=== PATIENT | male | born 1950 | race Caucasian/White ===

== ENCOUNTER 2016-04-05 10:00 | Inpatient (IN) | payer BC, OTHER ==
--- NOTE | 2016-04-05 16:36 | US ---
EXAMINATION: Ultrasound guided right thoracentesis. HISTORY: Right pleural effusion. Technique/findings: The procedure, benefits and risks were discussed with the patient. Following juana fernandez informed consent was obtained from the patient, under ultrasound guidance and utilizing 1% li docaine as local anesthesia the right pleural effusion was accessed using a 5 Malay one-step needle . Following access the catheter was placed into the effusion, 1800 cc of pleural effusion was drain ed. US images demonstrate a small residual pleural effusion. The patient tolerated the procedure we ll. IMPRESSION: Successful ultrasound guided right thoracentesis. Fluid was dark red.
[2016-04-05] MEDS ORDERED: Bisacodyl 5 MG Tab PO PRN (17:55)
[2016-04-05] MEDS ORDERED: Ondansetron 4 MG Tab.DIS PO PRN (17:55)
--- NOTE | 2016-04-05 18:04 | PCM.HP ---
H&P History of Present Illness - General Date of Service: 04/05/16 Admit Problem/Dx: Admission Diagnosis/Problem Admission Diagnosis/Problem Hypoxia Source of Information: Patient, Family, Old records, Provider, RN - History of Present Illness Initial Comments - Free Text/Narative: he was discharged from acute care status yesterday. He saw radiation oncology today. After a therapeutic thoracentesis today I received a call from Dr. Beaulieu who requested monitoring in the hospital for generalized weakness. - Related Data Allergies/Adverse Reactions: Allergies Allergy/AdvReac Type Severity Reaction Status Date / Time No Known Allergies Allergy Verified 03/29/16 15:06 Home Medications: Home Meds Pramipexole Di-HCl [Pramipexole Dihydrochloride] 3 tab PO BEDTIME 02/24/16 [ History] Albuterol Sulfate [Proair Hfa] 2 puff INH Q4H PRN 03/29/16 [History] Aspirin [Lo-Dose Aspirin EC] 1 tab PO DAILY 03/29/16 [History] Umeclidinium Brm/Vilanterol Tr [Anoro Ellipta 62.5-25 Mcg INH] 1 puff INH DAILY 03/29/16 [History] Zolpidem [Ambien] 10 mg PO BEDTIME 03/29/16 [History] Amoxicillin/Clavulanate K [Augmentin 875 MG/125 MG] 1 tab PO Q12HR #10 tablet [Rx] metroNIDAZOLE 500 mg PO Q6H #20 tablet 04/04/16 [Rx] oxyCODONE 5 mg PO Q4HR PRN #40 tablet 04/04/16 [Rx] Past Medical History Other HEENT History: glasses, has upper and lower dentures Cardiovascular History: Reports: None Respiratory History: Reports: None Gastrointestinal History: Reports: Chronic constipation Genitourinary History: Reports: None Musculoskeletal History: Reports: Other (see below) Other Musculoskeletal History: restless leg syndrome Neurological History: Reports: None Psychiatric History: Reports: None Endocrine/Metabolic History: Reports: Obesity/BMI 30+ Hematologic History: Reports: None Immunologic History: Reports: None Oncologic (Cancer) History: Reports: Lung Dermatologic History: Reports: None - Past Surgical History Head Surgeries/Procedures: Reports: None HEENT Surgical History: Reports: None Cardiovascular Surgical History: Reports: None Respiratory Surgical History: Reports: None GI Surgical History: Reports: None Male Surgical History: Reports: None Endocrine Surgical History: Reports: None Neurological Surgical History: Reports: None Musculoskeletal Surgical History: Reports: None Oncologic Surgical History: Reports: Other (see below) Other Oncologic Surgeries/Procedures: lung biopsy Social & Family History - Family History Family Medical History: Noncontributory HEENT: Reports: None Cardiac: Reports: None Respiratory: Reports: None GI: Reports: None : Reports: None OBGYN: Reports: None Musculoskeletal: Reports: None Neurological: Reports: None Psychiatric: Reports: None Endocrine/Metabolic: Reports: None Hematologic: Reports: None Immunologic: Reports: None Dermatologic: Reports: None Oncologic: Reports: None - Tobacco Use Smoking Status *Q: Former Smoker Years of Tobacco use: 40 Packs/Tins Daily: 2 Used Tobacco, but Quit: Yes Month Tobacco Last Used: 2016 Second Hand Smoke Exposure: No - Caffeine Use Caffeine Use: Reports: Coffee - Recreational Drug Use Recreational Drug Use: No Drug Use in Last 12 Months: No H&P Review of Systems - Review of Systems: Review Of Systems: See Below General: Reports: malaise, weakness, fatigue. Denies: fever, chills Pulmonary: Reports: shortness of breath (chronic) Cardiovascular: Denies: chest pain, palpitations Gastrointestinal: Reports: Diarrhea. Denies: Abdominal pain, Black stool, Bloody stool Exam - Exam Exam: See Below - Vital Signs Vital Signs: Last Vital Signs Temp 96.2 F 04/05/16 17:07 Pulse 96 04/05/16 17:07 Resp 22 H 04/05/16 17:07 BP 108/65 04/05/16 17:07 Pulse Ox 95 04/05/16 17:07 Weight: 87 kg - Exam General: alert, oriented, cooperative HEENT: EOMI Neck: supple Lungs: Decreased breath sounds (on the right). No: Wheezing Cardiovascular: regular rate, regular rhythm Abdomen: soft. No: tenderness Rectal (Males) Exam: Deferred Back Exam: other Neurological: cranial nerves intact, normal speech Neuro Extensive - Motor, Sensory, Reflexes: No: facial palsy (L), facial palsy ( R), hemiplagia (L), hemiplagia (R) *Q Meaningful Use (ADM) - VTE *Q VTE Criteria *Q: - Stroke *Q Stroke Criteria *Q: - AMI *Q AMI Criteria *Q: - Problem List (1) Hypoxia SNOMED Code(s): 493122277, 946050783 ICD Code: R09.02 - HYPOXEMIA Status: Acute Current Visit: No (2) Lung cancer SNOMED Code(s): 808689035 ICD Code: C34.90 - MALIGNANT NEOPLASM OF UNSP PART OF UNSP BRONCHUS OR LUNG Status: Acute Current Visit: No Qualifiers: Laterality: right Lung location: unspecified part of lung Qualified Code( s): C34.91 - Malignant neoplasm of unspecified part of right bronchus or lung (3) Malignant pleural effusion SNOMED Code(s): 08653940 ICD Code: J91.0 - MALIGNANT PLEURAL EFFUSION Status: Acute Current Visit : No Problem List Initiated/Reviewed/Updated: Yes Orders Last 24hrs: Active Orders 24 hr Category Date Time Status Admission Status [Patient Status] [ADT] Routine ADT 04/05/16 16:47 Active Oxygen Therapy [RC] PRN Care 04/05/16 17:55 Active Supplemental O2 [Oxygen Therapy] [RC] ASDIRECTED Care 04/05/16 16:52 Active VTE/DVT Education [RC] PER UNIT ROUTINE Care 04/05/16 17:55 Active Vital Signs [RC] Q4H Care 04/05/16 17:55 Active Regular Diet [DIET] Diet 04/05/16 Dinner Active Chest 1V Frontal [CR] Routine Exams 04/05/16 17:55 Ordered CBC WITH AUTO DIFF [HEME] AM Lab 04/06/16 05:11 Ordered COMPREHENSIVE METABOLIC PN,CMP [CHEM] AM Lab 04/06/16 05:11 Ordered MAGNESIUM [CHEM] AM Lab 04/06/16 05:11 Ordered Amoxicillin/Clavulanate K [Augmentin 875 MG/125 MG] Med 04/05/16 21:00 Ordered 1 tab PO Q12HR Aspirin [Halfprin] Med 04/06/16 09:00 Ordered 1 tab PO DAILY Bisacodyl [Dulcolax] Med 04/05/16 17:55 Ordered 5 mg PO DAILY PRN Megestrol [Megace] Med 04/06/16 09:00 Ordered 40 mg PO DAILY Ondansetron [Zofran ODT] Med 04/05/16 17:55 Ordered 4 mg PO Q4H PRN Pramipexole Med 04/05/16 21:00 Ordered 3 tab PO BEDTIME Sodium Chloride 0.9% @ 125 MLS/HR (1000ml) Med 04/05/16 18:00 Ordered Sodium Chloride 0.9% [Normal Saline] 1,000 ml IV ASDIRECTED Umeclidinium Brm/Vilanterol Tr [Anoro Ellipta 62.5-25 Med 04/06/16 09:00 Ordered Mcg INH] 1 puff INH DAILY Zolpidem Med 04/05/16 21:00 Ordered 10 mg PO BEDTIME metroNIDAZOLE Med 04/05/16 18:00 Ordered 500 mg PO Q6H oxyCODONE Med 04/05/16 17:49 Ordered 5 mg PO Q4HR PRN Resuscitation Status Routine Resus Stat 04/05/16 17:55 Ordered Medication Orders Amoxicillin/Clavulanate Potassium (Augmentin 875 Mg/125 Mg) 1 tab PO Q12HR [facility] Aspirin (Halfprin) mg PO DAILY [facility] Bisacodyl (Dulcolax) 5 mg PO DAILY PRN PRN Reason: Constipation Sodium Chloride (Normal Saline) 1,000 mls @ 125 mls/hr IV ASDIRECTED [facility] Megestrol Acetate (Megace) 40 mg PO DAILY [facility] Metronidazole (Metronidazole) 500 mg PO Q6H [facility] Non-Formulary Medication (Pramipexole) 3 tab PO BEDTIME [facility] Non-Formulary Medication (Umeclidinium Brm/Vilanterol Tr [Anoro Ellipta 62.5-25 Mcg Inh]) 1 puff INH DAILY [facility] Non-Formulary Medication (Zolpidem) 10 mg PO BEDTIME [facility] Ondansetron HCl (Zofran Odt) 4 mg PO Q4H PRN PRN Reason: nausea, able to take PO Oxycodone HCl (Oxycodone) 5 mg PO Q4HR PRN PRN Reason: Pain Assessment/Plan Comment:: observation oncology planned this week may need placement as his is unable to care for him currently CXR in am may consider PT consult in am IVF megace for poor appetite. lab in am. Riley Chinchilla MD
[2016-04-05] MEDS: metroNIDAZOLE 250 MG Tab PO SCH (18:45)
[2016-04-05] MEDS: Sodium Chloride 0.9% 1,000 ML IV SCH (18:45)
[2016-04-05] MEDS: Pramipexole 0.25 MG Tab PO SCH (20:11)
[2016-04-05] MEDS: Amoxicillin/Clavulanate K 875-125 MG Tab PO SCH (20:12)
[2016-04-05] MEDS: oxyCODONE 5 MG Tab PO PRN (20:15)
[2016-04-06] MEDS: metroNIDAZOLE 250 MG Tab PO SCH ×4 (00:42→18:15)
[2016-04-06] MEDS: Sodium Chloride 0.9% 1,000 ML IV SCH ×3 (02:54→21:21)
[2016-04-06 05:38] LABS: CHLORIDE,CL 107 mmol/L (98-110); SODIUM,NA 140 mmol/L (136-146)
[2016-04-06] MEDS: Amoxicillin/Clavulanate K 875-125 MG Tab PO SCH ×2 (08:32→21:05)
[2016-04-06] MEDS: Aspirin 81 MG Tab.EC PO SCH (08:32)
[2016-04-06] MEDS ORDERED: Megestrol Susp 40 MG/ML 10 ML UD Cup PO SCH (09:00)
[2016-04-06] MEDS ORDERED: Megestrol 40 MG Tab PO SCH (09:00)
[2016-04-06] MEDS: UMECLIDINIUM BRM INH SCH (09:16)
[2016-04-06] MEDS: VILANTEROL TR INH SCH (09:16)
[2016-04-06] MEDS ORDERED: Magnesium Sulfate/Water 2 GM in Premix Bag 1 BAG IV ONE (09:30)
--- NOTE | 2016-04-06 09:30 | NM ---
EXAMINATION: Whole-body PET CT scan from skullbase to proximal thighs. HISTORY: Lung cancer. PROCEDURE: Patient's fasting blood glucose was 125 mg/dL. 12.2 mCi of FDG was administered. Scannin g was performed one hour following injection. Comparison CT chest dated 03/29/2016 FINDINGS: NECK/CHEST: There is a large right pleural effusion. The right lung is predominantly collapsed howev er there is diffuse uptake throughout the right lung most prominent anteriorly. The maximum SUV is 1 0.4. There is uptake within the mediastinum and left hilum. Patchy uptake is also noted within the l eft low with several subpleural groundglass nodules identified. No abnormal uptake is noted within t he cervical chains. ABDOMEN/PELVIS: There is mild uptake within a small left adrenal nodule. No focal hepatic uptake. There is mild acti vity within a few small retroperitoneal lymph nodes. Normal excretion is noted within the kidneys an d bladder. No focal uptake within the small bowel or colon. OSSEOUS STRUCTURES: Diffuse skeletal metastases are noted throughout the cervical, thoracic, and lum bar spine. Numerous areas of uptake are noted within the sternum, ribs, sacrum and pelvis. Uptake is also noted within the proximal left humerus and within both femurs.. IMPRESSION: 1. Large ill-defined right pulmonary mass, difficult to measure due to adjacent atelectasis from the large right pleural effusion. Overall this area demonstrates avid FDG uptake. 2. Bilateral hilar, mediastinal, and patchy left pulmonary uptake consistent with malignant involvem ent. 3. Extensive diffuse osseous metastatic disease. 4. Small left adrenal nodule and several small retroperitoneal lymph nodes also demonstrating increa sed FDG uptake in stenosis with metastatic disease.
--- NOTE | 2016-04-06 11:17 | PCM.PN ---
<Jacklyn Sawyer - Last Filed: 04/06/16 11:07> - General Info Date of Service: 04/06/16 - Review of Systems General: Reports: weakness HEENT: Reports: no symptoms Pulmonary: Reports: no symptoms Cardiovascular: Reports: no symptoms Gastrointestinal: Reports: No symptoms Genitourinary: Reports: no symptoms Musculoskeletal: Reports: no symptoms Skin: Reports: no symptoms Neurological: Reports: no symptoms Psychiatric: Reports: no symptoms - Patient Data Vitals - most recent: Last Vital Signs Temp 98.1 F 04/06/16 08:00 Pulse 90 04/06/16 08:00 Resp 18 04/06/16 08:00 BP 102/55 L 04/06/16 08:00 Pulse Ox 96 04/06/16 10:30 Weight - most recent: 196 lb 8 oz I&O - last 24 hours: Intake & Output 04/05/16 04/06/16 04/06/16 22:59 06:59 14:59 Intake Total 2041 Balance 2041 Lab Results last 24 hrs: Laboratory Results - last 24 hr 04/06/16 04/06/16 Range/Units 04:45 04:45 WBC 11.70 H (4.0-11.0) K/uL RBC 3.93 L (4.50-5.90) M/uL Hgb 10.9 L (13.0-17.0) g/dL Hct 32.5 L (38.0-50.0) % MCV 82.7 (80.0-98.0) fL MCH 27.7 (27.0-32.0) pg MCHC 33.5 (31.0-37.0) g/dL RDW Std Deviation 44.0 (28.0-62.0) fl RDW Coeff of Vivienne 15 (11.0-15.0) % Plt Count 304 (150-400) K/uL MPV 9.60 (7.40-12.00) fL Add Manual Diff YES Neutrophils % (Manual) 78 (48.0-80.0) % Band Neutrophils % 2 % Lymphocytes % (Manual) 3 L (16.0-40.0) % Monocytes % (Manual) 11 (0.0-15.0) % Eosinophils % (Manual) 3 (0.0-7.0) % Basophils % (Manual) 3 H (0.0-1.5) % Nucleated RBC % 0.0 /100WBC Absolute Seg Neuts 9.1 Band Neutrophils # 0.2 Lymphocytes # (Manual) 0.4 Monocytes # (Manual) 1.3 Eosinophils # (Manual) 0.4 Basophils # (Manual) 0 Nucleated RBCs # 0 K/uL Sodium 140 (136-146) mmol/L Potassium 4.2 (3.5-5.1) mmol/L Chloride 107 (98-110) mmol/L Carbon Dioxide 23 (21-31) mmol/L BUN 12 (6.0-23.0) mg/dL Creatinine 0.7 (0.6-1.5) mg/dL Est Cr Clr Drug Dosing 110.35 mL/min Estimated GFR (MDRD) > 60.0 ml/min Glucose 96 (60-110) mg/dL Calcium 8.4 L (8.8-10.8) mg/dL Magnesium 1.2 L (1.5-2.3) mEq/L Total Bilirubin 0.7 (0.1-1.5) mg/dL AST 57 H (5-40) IU/L ALT 50 (8-54) IU/L Alkaline Phosphatase 102 (40-150) Total Protein 4.9 L (6.0-8.0) g/dL Albumin 2.6 L (3.4-4.8) g/dL Globulin 2.3 (2.0-3.5) g/dL Albumin/Globulin Ratio 1.1 L (1.3-2.8) Med Orders - Current: Current Medications Amoxicillin/Clavulanate Potassium (Augmentin 875 Mg/125 Mg) 1 tab PO Q12HR [facility] Last Admin: 04/06/16 08:32 Dose: 1 tab Aspirin (Halfprin) 81 mg PO DAILY [facility] Last Admin: 04/06/16 08:32 Dose: 81 mg Bisacodyl (Dulcolax) 5 mg PO DAILY PRN PRN Reason: Constipation Sodium Chloride (Normal Saline) 1,000 mls @ 125 mls/hr IV ASDIRECTED [facility] Last Admin: 04/06/16 02:54 Dose: 125 mls/hr Magnesium Sulfate 2 gm/ Premix 50 mls @ 25 mls/hr IV ONETIME ONE Stop: 04/06/16 11:29 Last Admin: 04/06/16 10:09 Dose: 25 mls/hr Megestrol Acetate (Megace 40 Mg/Ml Susp) 400 mg PO DAILY [facility] Last Admin: 04/06/16 08:32 Dose: 400 mg Metronidazole (Metronidazole) 500 mg PO Q6H [facility] Last Admin: 04/06/16 05:16 Dose: 500 mg Ondansetron HCl (Zofran Odt) 4 mg PO Q4H PRN PRN Reason: nausea, able to take PO Oxycodone HCl (Oxycodone) 5 mg PO Q4HR PRN PRN Reason: Pain Last Admin: 04/05/16 20:15 Dose: 5 mg Umeclidinium Brm/Vilanterol Tr [Anoro Ellipta] 62.5-25mcg 1 each INH DAILY [facility] Last Admin: 04/06/16 09:16 Dose: 1 each Pramipexole Dihydrochloride (Mirapex) 0.375 mg PO BEDTIME [facility] Last Admin: 04/05/16 20:11 Dose: 0.375 mg Zaleplon (Sonata) 10 mg PO BEDTIME [facility] Last Admin: 04/05/16 23:48 Dose: Not Given - Exam General: alert, oriented HEENT: Pupils equal, EOMI Neck: supple Lungs: Decreased breath sounds Cardiovascular: regular rate, regular rhythm Abdomen: bowel sounds present Back Exam: normal inspection Extremities: no edema - Problem List Review Problem List Initiated/Reviewed/Updated: Yes - My Orders Last 24 Hours: My Active Orders 04/06/16 09:30 Magnesium Sulfate/Water [Magnesium Sulfate 2 GM in Water 50 ML] 2 gm Premix Bag 1 bag IV ONETIME 04/06/16 10:45 PICC Line Insertion [CR] Routine - Plan Plan:: CXR today still has large right pleural effusion despite thrococentensis of 1800 ml yesterday PICC line will be placed today for chemo. <Mauro Fernandez - Last Filed: 04/06/16 15:55> - Patient Data Vitals - most recent: Last Vital Signs Temp 98.8 F 04/06/16 11:20 Pulse 94 04/06/16 11:20 Resp 20 04/06/16 11:20 BP 122/68 04/06/16 11:20 Pulse Ox 94 L 04/06/16 11:20 I&O - last 24 hours: Intake & Output 04/06/16 04/06/16 04/06/16 06:59 14:59 22:59 Intake Total 2041 Balance 2041 Lab Results last 24 hrs: Laboratory Results - last 24 hr 04/06/16 04/06/16 Range/Units 04:45 04:45 WBC 11.70 H (4.0-11.0) K/uL RBC 3.93 L (4.50-5.90) M/uL Hgb 10.9 L (13.0-17.0) g/dL Hct 32.5 L (38.0-50.0) % MCV 82.7 (80.0-98.0) fL MCH 27.7 (27.0-32.0) pg MCHC 33.5 (31.0-37.0) g/dL RDW Std Deviation 44.0 (28.0-62.0) fl RDW Coeff of Vivienne 15 (11.0-15.0) % Plt Count 304 (150-400) K/uL MPV 9.60 (7.40-12.00) fL Add Manual Diff YES Neutrophils % (Manual) 78 (48.0-80.0) % Band Neutrophils % 2 % Lymphocytes % (Manual) 3 L (16.0-40.0) % Monocytes % (Manual) 11 (0.0-15.0) % Eosinophils % (Manual) 3 (0.0-7.0) % Basophils % (Manual) 3 H (0.0-1.5) % Nucleated RBC % 0.0 /100WBC Absolute Seg Neuts 9.1 Band Neutrophils # 0.2 Lymphocytes # (Manual) 0.4 Monocytes # (Manual) 1.3 Eosinophils # (Manual) 0.4 Basophils # (Manual) 0 Nucleated RBCs # 0 K/uL Sodium 140 (136-146) mmol/L Potassium 4.2 (3.5-5.1) mmol/L Chloride 107 (98-110) mmol/L Carbon Dioxide 23 (21-31) mmol/L BUN 12 (6.0-23.0) mg/dL Creatinine 0.7 (0.6-1.5) mg/dL Est Cr Clr Drug Dosing 110.35 mL/min Estimated GFR (MDRD) > 60.0 ml/min Glucose 96 (60-110) mg/dL Calcium 8.4 L (8.8-10.8) mg/dL Magnesium 1.2 L (1.5-2.3) mEq/L Total Bilirubin 0.7 (0.1-1.5) mg/dL AST 57 H (5-40) IU/L ALT 50 (8-54) IU/L Alkaline Phosphatase 102 (40-150) Total Protein 4.9 L (6.0-8.0) g/dL Albumin 2.6 L (3.4-4.8) g/dL Globulin 2.3 (2.0-3.5) g/dL Albumin/Globulin Ratio 1.1 L (1.3-2.8) Med Orders - Current: Current Medications Albuterol (Proventil Hfa) gm INH Q4H PRN PRN Reason: Shortness of Breath Amoxicillin/Clavulanate Potassium (Augmentin 875 Mg/125 Mg) 1 tab PO Q12HR [facility] Last Admin: 04/06/16 08:32 Dose: 1 tab Aspirin (Halfprin) 81 mg PO DAILY [facility] Last Admin: 04/06/16 08:32 Dose: 81 mg Bisacodyl (Dulcolax) 5 mg PO DAILY PRN PRN Reason: Constipation Sodium Chloride (Normal Saline) 1,000 mls @ 125 mls/hr IV ASDIRECTED [facility] Last Admin: 04/06/16 13:22 Dose: 125 mls/hr Metronidazole (Metronidazole) 500 mg PO Q6H [facility] Last Admin: 04/06/16 11:39 Dose: 500 mg Ondansetron HCl (Zofran Odt) 4 mg PO Q4H PRN PRN Reason: nausea, able to take PO Oxycodone HCl (Oxycodone) 5 mg PO Q4HR PRN PRN Reason: Pain Last Admin: 04/05/16 20:15 Dose: 5 mg Umeclidinium Brm/Vilanterol Tr [Anoro Ellipta] 62.5-25mcg 1 each INH DAILY [facility] Last Admin: 04/06/16 09:16 Dose: 1 each Pramipexole Dihydrochloride (Mirapex) 0.375 mg PO BEDTIME [facility] Last Admin: 04/05/16 20:11 Dose: 0.375 mg Zaleplon (Sonata) 10 mg PO BEDTIME [facility] Last Admin: 04/05/16 23:48 Dose: Not Given Discontinued Medications Magnesium Sulfate 2 gm/ Premix 50 mls @ 25 mls/hr IV ONETIME ONE Stop: 04/06/16 11:29 Last Admin: 04/06/16 10:09 Dose: 25 mls/hr Megestrol Acetate (Megace 40 Mg/Ml Susp) 400 mg PO DAILY [facility] Last Admin: 04/06/16 08:32 Dose: 400 mg - My Orders Last 24 Hours: My Active Orders 04/06/16 15:46 PT Evaluation and Treatment [CONS] Routine Albuterol [Proventil HFA] DOSE gm INH Q4H PRN 04/06/16 15:47 Thoracentesis W/ US Guide [US] Routine - Plan Plan:: Generalized weakness - PT < oT therap[y , patient needs placement Metastatic lung cancer with recurrent pleural effusions - for Ir tomorrow for drainage Pick line today Pneumonia- procalcitonin level , continue augmentin and metronidazole for a total of 7-10 days
[2016-04-06] MEDS ORDERED: Albuterol 8 GM Inhaler INH PRN (15:46)
--- NOTE | 2016-04-06 16:00 | CR ---
EXAM DATE: 04/05/16 PATIENT'S AGE: 66 Patient: ADONAY DÍAZ Facility: [place], [place] Site . Site : [id number] Study: XRay Chest [id number]/[id number] 10:21:44 PM Ordering Physician: Renée Zamudio Final Report: INDICATION: Status post thoracentesis 6 hours prior. Lung cancer. Shortness of breath TECHNIQUE: Chest 1 view. 10:15 p.m. COMPARISON: 04/04/2016 FINDINGS: Cardiovascular and mediastinum: Heart size and vasculature are normal in caliber and appearance. Mediastinum is within normal limits. Lungs and pleural space: Stable large right pleural effusion. Underlying infiltrate cannot be excluded. No pneumothorax. Bones and soft tissues: No significant findings. IMPRESSION: Stable large right pleural effusion. Underlying infiltrate cannot be excluded. Dictated by J Carlos Roque MD @ 04/05/2016 10:25:26 PM Dictated by: J Carlos Roque MD @ 04/05/2016 22:25:33 (Electronic Signature) Report Signed by Proxy and Original Signed Document filed in the Medical Record. [facility], [place]
[2016-04-06] MEDS ORDERED: Iopamidol 612 MG/ML 75 ML Bottle IVPUSH STA (16:33)
[2016-04-06] MEDS: Enoxaparin 40 MG/0.4 ML Syringe SUBCUT SCH (16:53)
[2016-04-06] MEDS: Pramipexole 0.25 MG Tab PO SCH (21:05)
[2016-04-07] MEDS: metroNIDAZOLE 250 MG Tab PO SCH ×4 (00:11→18:06)
[2016-04-07 05:13] LABS: CHLORIDE,CL 106 mmol/L (98-110); SODIUM,NA 139 mmol/L (136-146)
[2016-04-07] MEDS: oxyCODONE 5 MG Tab PO PRN (05:22)
[2016-04-07] MEDS: Sodium Chloride 0.9% 1,000 ML IV SCH ×2 (05:27→16:48)
[2016-04-07] MEDS: UMECLIDINIUM BRM INH SCH (09:00)
[2016-04-07] MEDS: VILANTEROL TR INH SCH (09:00)
[2016-04-07] MEDS: Amoxicillin/Clavulanate K 875-125 MG Tab PO SCH (09:51)
[2016-04-07] MEDS: Aspirin 81 MG Tab.EC PO SCH (09:51)
[2016-04-07] MEDS ORDERED: Magnesium Sulfate/Water 2 GM in Premix Bag 1 BAG IV ONE (10:11)
[2016-04-07] MEDS: Enoxaparin 40 MG/0.4 ML Syringe SUBCUT SCH (15:30)
--- NOTE | 2016-04-07 15:53 | US ---
EXAMINATION: Ultrasound guided right thoracentesis. HISTORY: Right pleural effusion. Technique/findings: The procedure, benefits and risks were discussed with the patient. Following juana fernandez informed consent was obtained from the patient, under ultrasound guidance and utilizing 1% li docaine as local anesthesia the right pleural effusion was accessed using a 5 Kinyarwanda one-step needle . Following access the catheter was placed into the effusion, 2000 cc of pleural effusion was drain ed. US images demonstrate a small residual pleural effusion. The patient tolerated the procedure we ll. IMPRESSION: Successful ultrasound guided right thoracentesis. Fluid was dark red.
[2016-04-07 16:05] VITALS: BP 116/71
--- NOTE | 2016-04-08 11:52 | US ---
EXAMINATION: Fluoro and ultrasound guided left-sided PICC line placement. HISTORY: Chemotherapy. TECHNIQUE/FINDINGS: After written informed consent was obtained from the patient using ultrasound a nd Fluoro guidance under aseptic conditions utilizing 1% lidocaine as local anesthesia left basilic vein was accessed and 5 [place] dual lumen PICC catheter was deployed with its tip in the distal supe rior vena cava. The catheter had difficulty traversing down the SVC. 15 mL of [id number]-300 was injecte d with fluoroscopic evaluation demonstrating the tip in the cut position with adequate flow to the h eart. The catheter flushes and withdraws blood well. The catheter is flushed with the diluted hepar in. The catheter secured well. IMPRESSION: Successful Fluoro and ultrasound guided PICC line placement.
--- NOTE | 2016-04-09 10:49 | PCM.DCSUM1 ---
Addendum entered and electronically signed by Jacklyn Sawyer MD 04/09/16 15:16 : Discharge Summary - Hospital Course Free Text/Narrative:: Patient was discharged with Home Health Agency. RN to assess BP, Past Hospitilizations., PT/OT for strenghtening, Deconditioning and home safety evaluation. Homebound due to weakness, fatigue, decreased appetite. Plan of care overseen by Dr. Shahid. - Discharge Data Discharge Date: 04/06/16 Discharge Disposition: Home, W Home Health Agency 06 Condition: Good - Patient Summary/Data Operative Procedure(s) Performed: colonoscope Consults: Consultations 04/06/16 15:46 PT Evaluation and Treatment [CONS] Routine 04/07/16 18:33 Consult to Home Health [CONS] Routine - Patient Instructions Diet: Regular Diet as Tolerated Activity: As Tolerated Driving: Do Not Drive Showering/Bathing: May Shower Notify Provider of: Fever, Increased Pain, Swelling and Redness, Drainage, Nausea and/or Vomiting Other/Special Instructions: HOME HEALTH AGENCY:PT/OT for stregthening and home safety evaluation. RN to assess recent hospitilization. - Discharge Plan Home Medications: Home Meds Pramipexole Di-HCl [Pramipexole Dihydrochloride] 3 tab PO BEDTIME 02/24/16 [ History] Albuterol Sulfate [Proair Hfa] 2 puff INH Q4H PRN 03/29/16 [History] Aspirin [Lo-Dose Aspirin EC] 1 tab PO DAILY 03/29/16 [History] Umeclidinium Brm/Vilanterol Tr [Anoro Ellipta 62.5-25 Mcg INH] 1 puff INH DAILY 03/29/16 [History] Zolpidem [Ambien] 10 mg PO BEDTIME 03/29/16 [History] Amoxicillin/Clavulanate K [Augmentin 875 MG/125 MG] 1 tab PO Q12HR #10 tablet [Rx] metroNIDAZOLE 500 mg PO Q6H #20 tablet 04/04/16 [Rx] oxyCODONE 5 mg PO Q4HR PRN #40 tablet 04/04/16 [Rx] Patient Handouts: Pleural Effusion, Thoracotomy, Care After, [id number] Referrals: Mildred Marlow MD [Physician] - 04/08/16 10:20 am - Patient Data Vitals - Most Recent: Last Vital Signs Temp 96.5 F 04/07/16 16:00 Pulse 95 04/07/16 16:00 Resp 20 04/07/16 16:00 BP 116/71 04/07/16 16:00 Pulse Ox 93 L 04/07/16 16:00 Weight - Most Recent: 89.131 kg Med Orders - Current: Current Medications Discontinued Medications Albuterol (Ventolin Hfa) 0 gm INH Q4H PRN PRN Reason: Shortness of Breath Last Admin: 04/07/16 03:40 Dose: 2 puff Amoxicillin/Clavulanate Potassium (Augmentin 875 Mg/125 Mg) 1 tab PO Q12HR [facility] Last Admin: 04/07/16 09:51 Dose: 1 tab Aspirin (Halfprin) 81 mg PO DAILY [facility] Last Admin: 04/07/16 09:51 Dose: 81 mg Bisacodyl (Dulcolax) 5 mg PO DAILY PRN PRN Reason: Constipation Enoxaparin Sodium (Lovenox) 40 mg SUBCUT Q24H [facility] Last Admin: 04/07/16 15:30 Dose: 40 mg Sodium Chloride (Normal Saline) 1,000 mls @ 125 mls/hr IV ASDIRECTED [facility] Last Admin: 04/07/16 16:48 Dose: 125 mls/hr Magnesium Sulfate 2 gm/ Premix 50 mls @ 25 mls/hr IV ONETIME ONE Stop: 04/06/16 11:29 Last Admin: 04/06/16 10:09 Dose: 25 mls/hr Magnesium Sulfate 2 gm/ Premix 50 mls @ 25 mls/hr IV ONETIME ONE Stop: 04/07/16 12:10 Last Admin: 04/07/16 10:22 Dose: 25 mls/hr Iopamidol (Isovue-300 (61%)) 20 ml IVPUSH ONETIME STA Stop: 04/06/16 16:34 Last Admin: 04/06/16 16:35 Dose: 20 ml Megestrol Acetate (Megace 40 Mg/Ml Susp) 400 mg PO DAILY [facility] Last Admin: 04/06/16 08:32 Dose: 400 mg Metronidazole (Metronidazole) 500 mg PO Q6H [facility] Last Admin: 04/07/16 18:06 Dose: 500 mg Ondansetron HCl (Zofran Odt) 4 mg PO Q4H PRN PRN Reason: nausea, able to take PO Oxycodone HCl (Oxycodone) 5 mg PO Q4HR PRN PRN Reason: Pain Last Admin: 04/07/16 05:22 Dose: 5 mg Umeclidinium Brm/Vilanterol Tr [Anoro Ellipta] 62.5-25mcg 1 each INH DAILY [facility] Last Admin: 04/07/16 09:00 Dose: 1 each Pramipexole Dihydrochloride (Mirapex) 0.375 mg PO BEDTIME [facility] Last Admin: 04/06/16 21:05 Dose: 0.375 mg Zaleplon (Sonata) 10 mg PO BEDTIME [facility] Last Admin: 04/06/16 21:05 Dose: 10 mg Original Note: <Jacklyn Sawyer - Last Filed: 04/09/16 15:13> Discharge Summary - Hospital Course Free Text/Narrative:: 66 yo male readmitted for weakness and fatigue. He was recently dx with lung cancer with metastasis one month ago. His CXR has persistent Large right pleural effusion and thoracocentesis was preformed where 1800 ml were drained. PT was consulted for stregnthing and ambulation. He had a picc line placed for chemo. He was discharged with Home health agency. He will starting chemotherapy as outpatient. - Discharge Data Discharge Date: 05/04/16 Discharge Disposition: Home, W Home Health Agency 06 Condition: Good - Patient Summary/Data Operative Procedure(s) Performed: colonoscope Consults: Consultations 04/06/16 15:46 PT Evaluation and Treatment [CONS] Routine 04/07/16 18:33 Consult to Home Health [CONS] Routine - Patient Instructions Diet: Regular Diet as Tolerated Activity: As Tolerated Driving: Do Not Drive Showering/Bathing: May Shower Notify Provider of: Fever, Increased Pain, Swelling and Redness, Drainage, Nausea and/or Vomiting Other/Special Instructions: HOME HEALTH AGENCY:PT/OT for stregthening and home safety evaluation. RN to assess recent hospitilization. - Discharge Plan Home Medications: Home Meds Pramipexole Di-HCl [Pramipexole Dihydrochloride] 3 tab PO BEDTIME 02/24/16 [ History] Albuterol Sulfate [Proair Hfa] 2 puff INH Q4H PRN 03/29/16 [History] Aspirin [Lo-Dose Aspirin EC] 1 tab PO DAILY 03/29/16 [History] Umeclidinium Brm/Vilanterol Tr [Anoro Ellipta 62.5-25 Mcg INH] 1 puff INH DAILY 03/29/16 [History] Zolpidem [Ambien] 10 mg PO BEDTIME 03/29/16 [History] Amoxicillin/Clavulanate K [Augmentin 875 MG/125 MG] 1 tab PO Q12HR #10 tablet [Rx] metroNIDAZOLE 500 mg PO Q6H #20 tablet 04/04/16 [Rx] oxyCODONE 5 mg PO Q4HR PRN #40 tablet 04/04/16 [Rx] Patient Handouts: Pleural Effusion, Thoracotomy, Care After, [id number] Referrals: Mildred Marlow MD [Physician] - 04/08/16 10:20 am - General Info Date of Service: 04/09/16 Functional Status: Reports: pain controlled - Review of Systems General: Reports: weakness, fatigue HEENT: Reports: no symptoms Pulmonary: Reports: no symptoms Cardiovascular: Reports: no symptoms Gastrointestinal: Reports: No symptoms Genitourinary: Reports: no symptoms Musculoskeletal: Reports: no symptoms Skin: Reports: no symptoms Neurological: Reports: no symptoms Psychiatric: Reports: no symptoms - Patient Data Vitals - Most Recent: Last Vital Signs Temp 96.5 F 04/07/16 16:00 Pulse 95 04/07/16 16:00 Resp 20 04/07/16 16:00 BP 116/71 04/07/16 16:00 Pulse Ox 93 L 04/07/16 16:00 Weight - Most Recent: 196 lb 8 oz Med Orders - Current: Current Medications Discontinued Medications Albuterol (Ventolin Hfa) 0 gm INH Q4H PRN PRN Reason: Shortness of Breath Last Admin: 04/07/16 03:40 Dose: 2 puff Amoxicillin/Clavulanate Potassium (Augmentin 875 Mg/125 Mg) 1 tab PO Q12HR [facility] Last Admin: 04/07/16 09:51 Dose: 1 tab Aspirin (Halfprin) 81 mg PO DAILY [facility] Last Admin: 04/07/16 09:51 Dose: 81 mg Bisacodyl (Dulcolax) 5 mg PO DAILY PRN PRN Reason: Constipation Enoxaparin Sodium (Lovenox) 40 mg SUBCUT Q24H [facility] Last Admin: 04/07/16 15:30 Dose: 40 mg Sodium Chloride (Normal Saline) 1,000 mls @ 125 mls/hr IV ASDIRECTED [facility] Last Admin: 04/07/16 16:48 Dose: 125 mls/hr Magnesium Sulfate 2 gm/ Premix 50 mls @ 25 mls/hr IV ONETIME ONE Stop: 04/06/16 11:29 Last Admin: 04/06/16 10:09 Dose: 25 mls/hr Magnesium Sulfate 2 gm/ Premix 50 mls @ 25 mls/hr IV ONETIME ONE Stop: 04/07/16 12:10 Last Admin: 04/07/16 10:22 Dose: 25 mls/hr Iopamidol (Isovue-300 (61%)) 20 ml IVPUSH ONETIME STA Stop: 04/06/16 16:34 Last Admin: 04/06/16 16:35 Dose: 20 ml Megestrol Acetate (Megace 40 Mg/Ml Susp) 400 mg PO DAILY [facility] Last Admin: 04/06/16 08:32 Dose: 400 mg Metronidazole (Metronidazole) 500 mg PO Q6H [facility] Last Admin: 04/07/16 18:06 Dose: 500 mg Ondansetron HCl (Zofran Odt) 4 mg PO Q4H PRN PRN Reason: nausea, able to take PO Oxycodone HCl (Oxycodone) 5 mg PO Q4HR PRN PRN Reason: Pain Last Admin: 04/07/16 05:22 Dose: 5 mg Umeclidinium Brm/Vilanterol Tr [Anoro Ellipta] 62.5-25mcg 1 each INH DAILY [facility] Last Admin: 04/07/16 09:00 Dose: 1 each Pramipexole Dihydrochloride (Mirapex) 0.375 mg PO BEDTIME [facility] Last Admin: 04/06/16 21:05 Dose: 0.375 mg Zaleplon (Sonata) 10 mg PO BEDTIME [facility] Last Admin: 04/06/16 21:05 Dose: 10 mg - Exam General: Reports: alert, oriented HEENT: Reports: Pupils equal, EOMI Neck: Reports: supple Lungs: Reports: Decreased breath sounds Cardiovascular: Reports: regular rate, regular rhythm Abdomen: Reports: bowel sounds present Back Exam: Reports: normal inspection Extremities: Reports: no edema Skin: Reports: warm, dry, intact Neurological: Reports: no new focal deficit Psy/Mental Status: Reports: alert, normal affect, normal mood *Q Meaningful Use (DIS) - VTE *Q VTE Criteria *Q: - Stroke *Q Stroke Criteria *Q: - AMI *Q AMI Criteria *Q: <Ranulfo Fernandezjoselisa - Last Filed: 04/09/16 15:41> Discharge Summary - Hospital Course Free Text/Narrative:: Patient seen and examined . Agree with discharge summary . Patient also had pneumonia and was continued treatment with augmentin and metronidazole po. PET scan done on Apr 05 did not show infiltrate , reason why patient was not switched to iv antib . Procalcitonin was ordered , was not available at discharge, came elevated today at 1.9 . Patient WBC increased to 13 , repeat CBc they were slightly decreased. Patient afebrile , non productive cough. Patient was discharged home on augmentin and metronidazole - Discharge Diagnosis/Problem(s) (1) Hypoxia SNOMED Code(s): 507351010, 938454652 ICD Code: R09.02 - HYPOXEMIA Status: Acute (2) Lung cancer SNOMED Code(s): 490302027 ICD Code: C34.90 - MALIGNANT NEOPLASM OF UNSP PART OF UNSP BRONCHUS OR LUNG Status: Acute Qualifiers: Laterality: right Lung location: unspecified part of lung Qualified Code( s): C34.91 - Malignant neoplasm of unspecified part of right bronchus or lung (3) Malignant pleural effusion SNOMED Code(s): 95528319 ICD Code: J91.0 - MALIGNANT PLEURAL EFFUSION Status: Acute (4) Pneumonia SNOMED Code(s): 133300113 ICD Code: J18.9 - PNEUMONIA, UNSPECIFIED ORGANISM Status: Acute - Patient Summary/Data Consults: Consultations 04/06/16 15:46 PT Evaluation and Treatment [CONS] Routine 04/07/16 18:33 Consult to Home Health [CONS] Routine - Patient Data Vitals - Most Recent: Last Vital Signs Temp 96.5 F 04/07/16 16:00 Pulse 95 04/07/16 16:00 Resp 20 04/07/16 16:00 BP 116/71 04/07/16 16:00 Pulse Ox 93 L 04/07/16 16:00 Med Orders - Current: Current Medications Discontinued Medications Albuterol (Ventolin Hfa) 0 gm INH Q4H PRN PRN Reason: Shortness of Breath Last Admin: 04/07/16 03:40 Dose: 2 puff Amoxicillin/Clavulanate Potassium (Augmentin 875 Mg/125 Mg) 1 tab PO Q12HR [facility] Last Admin: 04/07/16 09:51 Dose: 1 tab Aspirin (Halfprin) 81 mg PO DAILY [facility] Last Admin: 04/07/16 09:51 Dose: 81 mg Bisacodyl (Dulcolax) 5 mg PO DAILY PRN PRN Reason: Constipation Enoxaparin Sodium (Lovenox) 40 mg SUBCUT Q24H [facility] Last Admin: 04/07/16 15:30 Dose: 40 mg Sodium Chloride (Normal Saline) 1,000 mls @ 125 mls/hr IV ASDIRECTED [facility] Last Admin: 04/07/16 16:48 Dose: 125 mls/hr Magnesium Sulfate 2 gm/ Premix 50 mls @ 25 mls/hr IV ONETIME ONE Stop: 04/06/16 11:29 Last Admin: 04/06/16 10:09 Dose: 25 mls/hr Magnesium Sulfate 2 gm/ Premix 50 mls @ 25 mls/hr IV ONETIME ONE Stop: 04/07/16 12:10 Last Admin: 04/07/16 10:22 Dose: 25 mls/hr Iopamidol (Isovue-300 (61%)) 20 ml IVPUSH ONETIME STA Stop: 04/06/16 16:34 Last Admin: 04/06/16 16:35 Dose: 20 ml Megestrol Acetate (Megace 40 Mg/Ml Susp) 400 mg PO DAILY [facility] Last Admin: 04/06/16 08:32 Dose: 400 mg Metronidazole (Metronidazole) 500 mg PO Q6H [facility] Last Admin: 04/07/16 18:06 Dose: 500 mg Ondansetron HCl (Zofran Odt) 4 mg PO Q4H PRN PRN Reason: nausea, able to take PO Oxycodone HCl (Oxycodone) 5 mg PO Q4HR PRN PRN Reason: Pain Last Admin: 04/07/16 05:22 Dose: 5 mg Umeclidinium Brm/Vilanterol Tr [Anoro Ellipta] 62.5-25mcg 1 each INH DAILY [facility] Last Admin: 04/07/16 09:00 Dose: 1 each Pramipexole Dihydrochloride (Mirapex) 0.375 mg PO BEDTIME [facility] Last Admin: 04/06/16 21:05 Dose: 0.375 mg Zaleplon (Sonata) 10 mg PO BEDTIME [facility] Last Admin: 04/06/16 21:05 Dose: 10 mg *Q Meaningful Use (DIS) - VTE *Q VTE Criteria *Q: - Stroke *Q Stroke Criteria *Q: - AMI *Q AMI Criteria *Q:
== END 2016-04-07 19:30 | disposition home or self-care (01) | DRG 136 ==
LOC: MW.NM 10:00 → MW.MS 10:00 → MW.NM 10:08 → MW.MS 16:42 → UNDOADMOB 16:42 → INTOOBSV 16:42 → MW.MS 16:42 → MW.NM 16:42 → MW.MS 16:45 → MW.NM 16:45 → MW.MS 16:47 → MW.NM 17:00 → OBSVTOIN 04-06 16:40 → INTOOBSV 04-06 16:50 → UNDODISIN 04-07 19:30 → MW.NM 04-07 19:30 → EDSTATUS 04-28 10:00
PROVIDERS: ADMIT Internal Medicine; ATTEND Internal Medicine
PROC: 0W993ZZ Drainage of Right Pleural Cavity, Percutaneous Approach (ICD-10-PCS; 2016-03-30)
PROC: 0W993ZZ Drainage of Right Pleural Cavity, Percutaneous Approach (ICD-10-PCS; 2016-03-31)
PROC: 02HV33Z Insertion of Infusion Device into Superior Vena Cava, Percutaneous Approach (ICD-10-PCS; 2016-04-06)
PROC: B518ZZA Fluoroscopy of Superior Vena Cava, Guidance (ICD-10-PCS; 2016-04-06)
PROC: 0W9940Z Drainage of Right Pleural Cavity with Drainage Device, Percutaneous Endoscopic Approach (ICD-10-PCS; principal; 2016-04-07)
DX: C34.91 Malignant neoplasm of unspecified part of right bronchus or lung (principal); J91.0 Malignant pleural effusion; G25.81 Restless legs syndrome; K59.09 Other constipation; E66.9 Obesity, unspecified; Z87.891 Personal history of nicotine dependence; J18.9 Pneumonia, unspecified organism; R09.02 Hypoxemia; C79.31 Secondary malignant neoplasm of brain; C79.51 Secondary malignant neoplasm of bone; R19.7 Diarrhea, unspecified; R63.0 Anorexia; G20 Parkinson's disease; M54.9 Dorsalgia, unspecified; R11.0 Nausea; E87.1 Hypo-osmolality and hyponatremia; Z79.82 Long term (current) use of aspirin; Z79.899 Other long term (current) drug therapy; C34.90 Malignant neoplasm of unspecified part of unspecified bronchus or lung
CPT/HCPCS: 32555; 36415; 36569; 36600; 70553; 71010; 71010-26; 71020; 71250; 72157; 72158; 76937; 76937-26; 78815; 78815-26; 80048; 80053; 80202; 81001; 82803; 82945; 83615; 83735; 84145; 84157; 85025; 85027; 87040; 87070; 87205; 87324; 87804; 88104; 88305; 89050; 94640; 94664; 96361; 96365; 96366; 97162-GP; 97802; 99285-25; A9270-GY; A9552; A9585; G0378; G0379; G0463; J1644; J1650; J1956; J2060; J2405; J2543; J3370; J3475; J7040; J7050; Q9967

== ENCOUNTER 2016-04-19 13:57 | Inpatient (IN) | payer BC, SELFPAY ==
[2016-04-19] MEDS: Sodium Chloride 0.9% 1,000 ML IV SCH (15:10)
[2016-04-19] MEDS ORDERED: Prochlorperazine 10 MG Tab PO PRN (15:12)
--- NOTE | 2016-04-19 15:30 | PCM.HP ---
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 Zabala's clinic today with concerns of generalized weakness and continued poor appetite. His reports he has continued to not eat or drink much at home. Anything in solid nature he will not eat, he will put it in his mouth and he immediately spits it out. They don't recall him having any troubles swallowing liquids. He eats applesauce, ice cream and Ensure at home. They have attempted to puree other foods, such as meatloaf but he would not eat this. He received chemotherapy on April 08 here in [place] and is scheduled for another treatment on April 29. He is being treated by Dr. Mildred Marlow, current treatment includes CARBOplatin and PEMEtrexed. He has no complaints of a sore throat or mouth sores. He denies any chest pain or palpitations. Does have SOB with exertion. He was seen in the ED on Tuesday in [place], [place] for a thoracentesis in which they drained 3 L, per his 's report. He uses 4 L NC oxygen at home since diagnosis of lung cancer. denies him having any fevers, cough or chills at home. No abdominal pain or black/bloody stools. Does have some loose stool. He was sent home on Augmentin and Flagyl on discharge April 09 for PNA. He does complain of bilateral foot pain. In the clnic today hgb 8.9 down from 10.9 on 04/07/2016. WBC 5,170, Platelets 159 , Na 139, K+4.1, BUN 13, Cr 0.7, Mg 1.8 Ca 7.4, AST 85 ALT 65, Alk phos 107. CXR today reveals moderate R pleural effusion decreased from exam on Apr 05, 2016, persistent R perihilar density and right upper and R lower lobe infiltrate and atelectasis. Direct admission recommended by Dr. Zabala for generalized weakness, dehydration, and anemia. Feet Pain Score (Numeric/FACES): 5 - Related Data Allergies/Adverse Reactions: Allergies Allergy/AdvReac Type Severity Reaction Status Date / Time No Known Allergies Allergy Verified 03/29/16 15:06 Home Medications: Home Meds Pramipexole Di-HCl [Pramipexole Dihydrochloride] 0.5 mg PO BEDTIME 02/24/16 [ History] Albuterol Sulfate [Proair Hfa] 2 puff INH QID PRN 03/29/16 [History] Aspirin [Lo-Dose Aspirin EC] 81 mg PO DAILY 03/29/16 [History] Umeclidinium Brm/Vilanterol Tr [Anoro Ellipta 62.5-25 Mcg INH] 1 puff INH DAILY 03/29/16 [History] Zolpidem [Ambien] 10 mg PO BEDTIME PRN 03/29/16 [History] metroNIDAZOLE 500 mg PO Q6H #20 tablet 04/04/16 [Rx] Ondansetron HCl [Ondansetron] 8 mg PO DAILY PRN 04/19/16 [History] Prochlorperazine Maleate 10 mg PO ASDIRECTED PRN 04/19/16 [History] oxyCODONE 5 mg PO QID PRN 04/19/16 [History] Past Medical History Other HEENT History: glasses, has upper and lower dentures Cardiovascular History: Reports: None. Denies: CAD, Heart Failure, High cholesterol, Hypertension, [place] Respiratory History: Reports: Other (see below) Other Respiratory History: lung CA stage IV, R chest mass adenocarcinoma Gastrointestinal History: Reports: Chronic constipation Genitourinary History: Reports: None Musculoskeletal History: Reports: Other (see below) Other Musculoskeletal History: restless leg syndrome Neurological History: Reports: None. Denies: CVA, TIA Psychiatric History: Reports: None Hematologic History: Reports: None Immunologic History: Reports: None Oncologic (Cancer) History: Reports: Lung Dermatologic History: Reports: None - Infectious Disease History Infectious Disease History: Reports: Chicken pox, Influenza - Past Surgical History Head Surgeries/Procedures: Reports: None HEENT Surgical History: Reports: None Cardiovascular Surgical History: Reports: None Respiratory Surgical History: Reports: Lung Biopsies, Thoracentesis GI Surgical History: Reports: None Male Surgical History: Reports: Circumcision Endocrine Surgical History: Reports: None Neurological Surgical History: Reports: None Musculoskeletal Surgical History: Reports: None Oncologic Surgical History: Reports: Other (see below) Other Oncologic Surgeries/Procedures: lung biopsy Social & Family History - Family History Family Medical History: Noncontributory HEENT: Reports: Impaired vision Cardiac: Reports: Heart failure, Other (see below) Other Cardiac Family History: enlarged heart Respiratory: Reports: None GI: Reports: None : Reports: None, Other (see below) Other Family History: kidney failure OBGYN: Reports: Musculoskeletal: Reports: Arthritis Neurological: Reports: None Psychiatric: Reports: None Endocrine/Metabolic: Reports: Other (see below) Other Endocrine/Metabolic Family History: borderline diabetes Hematologic: Reports: None Immunologic: Reports: AIDS, HIV Dermatologic: Reports: None Oncologic: Reports: Pancreatic, Prostate - Tobacco Use Smoking Status *Q: Former Smoker Years of Tobacco use: 40 Packs/Tins Daily: 1.5 Used Tobacco, but Quit: Yes Month Tobacco Last Used: Mar 10, 2016 Second Hand Smoke Exposure: No - Caffeine Use Caffeine Use: Reports: Soda - Alcohol Use Number of Drinks Per Day: 0 - Recreational Drug Use Recreational Drug Use: Yes Drug Use in Last 12 Months: No Recreational Drug Type: Reports: Marijuana/Hashish Recreational Drug Use Frequency: Rarely - Living Situation & Occupation Living situation: Reports: (Huseyin, ) H&P Review of Systems - Review of Systems: Review Of Systems: See Below General: Reports: weakness, fatigue. Denies: fever, chills HEENT: Reports: no symptoms. Denies: headaches, post nasal drip, sinus congestion, sore throat Pulmonary: Reports: shortness of breath. Denies: wheezing, cough, sputum Cardiovascular: Denies: chest pain, palpitations, edema Gastrointestinal: Reports: Decreased appetite, Difficulty swallowing. Denies: Abdominal pain, Black stool, Bloody stool Genitourinary: Reports: no symptoms. Denies: dysuria, frequency, burning, pain Musculoskeletal: Reports: foot pain (bilateral) Skin: Reports: no symptoms Psychiatric: Reports: other ( reports he will pick at things in the air) Hematologic/Lymphatic: Reports: anemia Immunologic: Reports: no symptoms Exam - Exam Exam: See Below - Vital Signs Weight: 76.8 kg - Exam Quality Assessment: supplemental oxygen (4 L NC), DVT prophylaxis General: alert, oriented, cooperative HEENT: Conjunctiva clear, Nares patent, Posterior pharynx clear. No: Mucosa moist & pink (dry) Neck: supple, trachea midline, 2+ carotid pulse wo bruit. No: lymphadenopathy Lungs: Clear to auscultation (only to L lung miles), Decreased breath sounds ( LS to R decreased significantly) Cardiovascular: regular rate, regular rhythm, normal S1, normal S2 Abdomen: normal bowel sounds, soft. No: organomegaly, guarding, rebound, tenderness Extremities: normal inspection, normal pulses. No: calf tenderness, increased warmth Skin: warm, dry, decubitis ulcer (sacral region in the gluteal cleft, small opening noted, "cracked". No surrounding erythema. Will place duoderm and frequently reposition.) Neurological: reflexes equal bilateral Neuro Extensive - Mental Status: alert, oriented x3, normal mood/affect, normal cognition Psychiatric: alert, normal affect, normal mood *Q Meaningful Use (ADM) - VTE *Q VTE Criteria *Q: - VTE Risk Assess *Q Each Risk Factor Represents 1 Point: Serious Lung Disease Including Pneumonia, Less than 1 Month Total Score 1 Point Risk Factors: 1 Each Risk Factor Represents 2 Points: Age 60 - 74 Years Total Score 2 Point Risk Factors: 2 Each Risk Factor Represents 3 Points: Present Cancer or Chemotherapy Total Score 3 Point Risk Factors: 3 Each Risk Factor Represents 5 Points: None Total Score 5 Point Risk Factors: 0 Venous Thromboembolism Risk Factor Score *Q: 6 - Stroke *Q Stroke Criteria *Q: - AMI *Q AMI Criteria *Q: - Problem List (1) Generalized weakness SNOMED Code(s): 71007566 ICD Code: R53.1 - WEAKNESS Status: Acute Current Visit: Yes (2) Failure to thrive SNOMED Code(s): 76438073 ICD Code: [id number] - Status: Acute Current Visit: Yes (3) Dehydration SNOMED Code(s): 64932344 ICD Code: E86.0 - DEHYDRATION Status: Acute Current Visit: Yes (4) Malignant pleural effusion SNOMED Code(s): 69376075 ICD Code: J91.0 - MALIGNANT PLEURAL EFFUSION Status: Acute Current Visit : No (5) Adenocarcinoma of lung, stage 4 SNOMED Code(s): 512913259, 823279039 ICD Code: C34.90 - MALIGNANT NEOPLASM OF UNSP PART OF UNSP BRONCHUS OR LUNG Status: Chronic Current Visit: Yes Qualifiers: Laterality: right Qualified Code(s): C34.91 - Malignant neoplasm of unspecified part of right bronchus or lung (6) Hypoxia SNOMED Code(s): 914667597, 816025702 ICD Code: R09.02 - HYPOXEMIA Status: Chronic Current Visit: No Problem List Initiated/Reviewed/Updated: Yes Orders Last 24hrs: Active Orders 24 hr Category Date Time Status Patient Status [ADT] Routine ADT 04/19/16 14:49 Active Antiembolic Devices [RC] PER UNIT ROUTINE Care 04/19/16 14:51 Active Communication Order [RC] ROUTINE Care 04/19/16 14:37 Active Intake and Output [RC] QSHIFT Care 04/19/16 14:50 Active May Shower [RC] ASDIRECTED Care 04/19/16 14:49 Active Oxygen Therapy [RC] PRN Care 04/19/16 14:49 Active Up ad Iqra [RC] ASDIRECTED Care 04/19/16 14:49 Active VTE/DVT Education [RC] PER UNIT ROUTINE Care 04/19/16 14:49 Active Vital Signs [RC] Q4H Care 04/19/16 14:49 Active PT Evaluation and Treatment [CONS] Routine Cons 04/20/16 08:00 Active 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 Evaluation and Treatment [CONS] Routine Cons 04/19/16 14:52 Active Regular Diet [DIET] Diet 04/19/16 Dinner Active CBC WITH AUTO DIFF [HEME] AM Lab 04/20/16 05:11 Ordered CBC WITH AUTO DIFF [HEME] AM Lab 04/21/16 05:11 Ordered CBC WITH AUTO DIFF [HEME] AM Lab 04/22/16 05:11 Ordered COMPREHENSIVE METABOLIC PN,CMP [CHEM] DAILY Lab 04/20/16 05:00 Ordered COMPREHENSIVE METABOLIC PN,CMP [CHEM] DAILY Lab 04/21/16 05:00 Ordered COMPREHENSIVE METABOLIC PN,CMP [CHEM] DAILY Lab 04/22/16 05:00 Ordered MAGNESIUM [CHEM] Routine Lab 04/19/16 12:50 Received RED BLOOD CELLS LP [BBK] Routine Lab 04/19/16 14:52 Ordered TYPE AND SCREEN [BBK] Routine Lab 04/19/16 14:52 Ordered Albuterol [Proventil HFA] Med 04/19/16 15:12 Ordered DOSE gm INH QID PRN Mirtazapine [Remeron] Med 04/19/16 21:00 Ordered 15 mg PO BEDTIME Morphine Med 04/19/16 14:49 Active 2 mg IVPUSH Q2H PRN Ondansetron [Zofran] Med 04/19/16 14:49 Active 4 mg IVPUSH Q4H PRN Pramipexole Med 04/19/16 21:00 Ordered 0.5 mg PO BEDTIME Prochlorperazine [Compazine] Med 04/19/16 15:12 Ordered 10 mg PO ASDIRECTED PRN Sodium Chloride 0.9% [Normal Saline] 1,000 ml Med 04/19/16 15:00 Active IV ASDIRECTED Zolpidem Med 04/19/16 15:12 Ordered 10 mg PO BEDTIME PRN oxyCODONE Med 04/19/16 15:12 Ordered 5 mg PO QID PRN Sequential Compression Device [OM.PC] Per Unit Routine Oth 04/19/16 14:51 Ordered Transfuse Red Blood Cells [COMM] Routine Oth 04/19/16 14:52 Ordered Resuscitation Status Routine Resus Stat 04/19/16 14:49 Ordered Medication Orders Albuterol (Proventil Hfa) gm INH QID PRN PRN Reason: Shortness of Breath Sodium Chloride (Normal Saline) 1,000 mls @ 100 mls/hr IV ASDIRECTED LUIS Last Admin: 04/19/16 15:10 Dose: 100 mls/hr Mirtazapine (Remeron) 15 mg PO BEDTIME LUIS Morphine Sulfate (Morphine) 2 mg IVPUSH Q2H PRN PRN Reason: Pain (severe 7-10) Non-Formulary Medication (Pramipexole) 0.5 mg PO BEDTIME LUIS Non-Formulary Medication (Zolpidem) 10 mg PO BEDTIME PRN PRN Reason: Insomnia Ondansetron HCl (Zofran) 4 mg IVPUSH Q4H PRN PRN Reason: Pain Oxycodone HCl (Oxycodone) 5 mg PO QID PRN PRN Reason: Pain Prochlorperazine Maleate (Compazine) 10 mg PO ASDIRECTED PRN PRN Reason: asdirected Assessment/Plan Comment:: This 70 year old male admitted with generalized weakness, dehydration, and anemia with pmh of 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 1. Generalized weakness: PT to evaluate and treat in the am. Likely secondary to lung ca, dehydration and anemia. 2. Anemia: Hgb noted to be 8.9, down from 10.9 2 weeks ago. Received chemo on April 08. No active bleeding noted. Will transfuse 1 unit and monitor hgb and response. 3. Dehydration: Will provide IVFs NS 100 for now. Monitor. Encourage PO intake 4. Failure to thrive: Continues to lose weight and not eating well at home. WIll consult dietary to assist family in dietary needs. Will also start Remeron for appetite stimulant. Will monitor. Will consult ST to evaluate swallowing. 5. Pleural effusion: Secondary to adenocarcinoma. Will order for therapeutic thoracentesis in am when Dr. Rico available. R upper and R lower infiltrate and atelectasis noted on CXR, does not appear to be acutely ill. No Leukocytosis , no fever. Will monitor, just finished course of antibiotics, Augmentin and Flagyl. Will not start antibiotics at this time. 6. Stage IV lung ca: Received chemo April 08, next scheduled is April 29. Spoke with Huseyin regarding goals of treatment. "Do everything you can, we are not ready to throw in the towel." "Just make him stronger, lets start there. " Reports does what him to be FULL CODE. Per Dr. Marlow's Progress note on 2016, prognosis listed as "extremely poor". "Chemotherapy would be an attempt to slow progression and allow him to overall feel and function better, and hopefully decrease frequency of thoracentesis." 7. Hypocalcemia: Will supplement and monitor. Per recommendations of Dr. Marlow, due to being treated with Xgeva for osseous metastases he should be taking Calcium + Vit D, will start this tomorrow. VTE: SCDs. Dispo: 2-4 days pending improvement.
[2016-04-19] MEDS: Hydrocolloid Dressing 4x4 Bandage TOP PRN (16:36)
[2016-04-19] MEDS ORDERED: Calcium Carbonate 500 MG Tab.Chew PO ONE (16:45)
[2016-04-19] MEDS: Mirtazapine 15 MG Tab.DIS PO SCH (20:40)
[2016-04-19] MEDS: Pramipexole 0.25 MG Tab PO SCH (20:40)
[2016-04-20] MEDS: oxyCODONE 5 MG Tab PO PRN ×2 (00:16→23:24)
[2016-04-20] MEDS: Haloperidol Lactate 5 MG/ML SDV IM PRN ×2 (00:56→23:21)
[2016-04-20] MEDS: Sodium Chloride 0.9% 1,000 ML IV SCH ×2 (05:07→21:20)
[2016-04-20 05:46] LABS: CHLORIDE,CL 108 mmol/L (98-110); SODIUM,NA 141 mmol/L (136-146)
[2016-04-20] MEDS ORDERED: Calcium Gluconate 10% 1 GM/10 ML SDV IV ONE (07:43)
--- NOTE | 2016-04-20 08:09 | PCM.PN ---
- General Info Date of Service: 04/20/16 Admission Dx/Problem (Free Text): Admission Diagnosis/Problem Admission Diagnosis/Problem Dehydration Subjective Update: Alert and oriented x2, does have moments of confusion and continuously picks and pulls ate wires and clothing. not at bedside during first rounds. Patient denies any pain or cocnerns at that time at bedside during second rounds with Dr. Scott. Spoke with her regarding confusion and prognosis. Functional Status: Reports: pain controlled, tolerating diet. Denies: ambulating - Review of Systems General: Reports: No Symptoms. Denies: Fever HEENT: Reports: no symptoms. Denies: sinus congestion, sore throat Pulmonary: Reports: shortness of breath (intermittently). Denies: cough Cardiovascular: Reports: No Symptoms. Denies: Chest Pain, Palpitations Gastrointestinal: Reports: No symptoms. Denies: Abdominal pain, Nausea, Vomiting Genitourinary: Reports: retention (straight cath this am due to urinary retention) Skin: Reports: no symptoms Neurological: Reports: Confusion Psychiatric: Reports: no symptoms - Patient Data Vitals - most recent: Last Vital Signs Temp 98.2 F 04/20/16 04:00 Pulse 88 04/19/16 21:29 Resp 18 04/20/16 04:00 BP 98/51 L 04/20/16 04:00 Pulse Ox 94 L 04/20/16 04:00 Weight - most recent: 75.9 kg I&O - last 24 hours: Intake & Output 04/19/16 04/20/16 04/20/16 22:59 06:59 14:59 Intake Total 350 1100 Output Total 0 1100 Balance 350 0 Lab Results last 24 hrs: Laboratory Results - last 24 hr 04/19/16 04/19/16 04/19/16 Range/Units 12:50 15:15 21:20 WBC (4.0-11.0) K/uL RBC (4.50-5.90) M/uL Hgb 8.9 L (13.0-17.0) g/dL Hct 26.4 L (38.0-50.0) % MCV (80.0-98.0) fL MCH (27.0-32.0) pg MCHC (31.0-37.0) g/dL RDW Std Deviation (28.0-62.0) fl RDW Coeff of Vivienne (11.0-15.0) % Plt Count (150-400) K/uL MPV (7.40-12.00) fL Add Manual Diff Neutrophils % (Manual) (48.0-80.0) % Band Neutrophils % % Lymphocytes % (Manual) (16.0-40.0) % Monocytes % (Manual) (0.0-15.0) % Eosinophils % (Manual) (0.0-7.0) % Nucleated RBC % /100WBC Absolute Seg Neuts Band Neutrophils # Lymphocytes # (Manual) Monocytes # (Manual) Eosinophils # (Manual) Nucleated RBCs # K/uL Sodium (136-146) mmol/L Potassium (3.5-5.1) mmol/L Chloride (98-110) mmol/L Carbon Dioxide (21-31) mmol/L BUN (6.0-23.0) mg/dL Creatinine (0.6-1.5) mg/dL Est Cr Clr Drug Dosing mL/min Estimated GFR (MDRD) ml/min Glucose (60-110) mg/dL Calcium (8.8-10.8) mg/dL Magnesium 1.8 (1.5-2.3) mEq/L Total Bilirubin (0.1-1.5) mg/dL AST (5-40) IU/L ALT (8-54) IU/L Alkaline Phosphatase (40-150) Total Protein (6.0-8.0) g/dL Albumin (3.4-4.8) g/dL Globulin (2.0-3.5) g/dL Albumin/Globulin Ratio (1.3-2.8) Blood Type O POSITIVE Antibody Screen NEGATIVE Crossmatch See Detail 04/20/16 04/20/16 Range/Units 04:35 04:35 WBC 5.23 (4.0-11.0) K/uL RBC 3.03 L (4.50-5.90) M/uL Hgb 8.5 L (13.0-17.0) g/dL Hct 25.9 L (38.0-50.0) % MCV 85.5 (80.0-98.0) fL MCH 28.1 (27.0-32.0) pg MCHC 32.8 (31.0-37.0) g/dL RDW Std Deviation 44.2 (28.0-62.0) fl RDW Coeff of Vivienne 16 H (11.0-15.0) % Plt Count 153 (150-400) K/uL MPV 10.10 (7.40-12.00) fL Add Manual Diff YES Neutrophils % (Manual) 77 (48.0-80.0) % Band Neutrophils % 6 % Lymphocytes % (Manual) 7 L (16.0-40.0) % Monocytes % (Manual) 7 (0.0-15.0) % Eosinophils % (Manual) 3 (0.0-7.0) % Nucleated RBC % 0.0 /100WBC Absolute Seg Neuts 4.0 Band Neutrophils # 0.3 Lymphocytes # (Manual) 0.4 Monocytes # (Manual) 0.4 Eosinophils # (Manual) 0.2 Nucleated RBCs # 0 K/uL Sodium 141 (136-146) mmol/L Potassium 4.4 (3.5-5.1) mmol/L Chloride 108 (98-110) mmol/L Carbon Dioxide 24 (21-31) mmol/L BUN 10 (6.0-23.0) mg/dL Creatinine 0.6 (0.6-1.5) mg/dL Est Cr Clr Drug Dosing 128.43 mL/min Estimated GFR (MDRD) > 60.0 ml/min Glucose 86 (60-110) mg/dL Calcium 6.9 L (8.8-10.8) mg/dL Magnesium 1.9 (1.5-2.3) mEq/L Total Bilirubin 1.0 (0.1-1.5) mg/dL AST 73 H (5-40) IU/L ALT 51 (8-54) IU/L Alkaline Phosphatase 93 (40-150) Total Protein 4.9 L (6.0-8.0) g/dL Albumin 2.4 L (3.4-4.8) g/dL Globulin 2.5 (2.0-3.5) g/dL Albumin/Globulin Ratio 1.0 L (1.3-2.8) Blood Type Antibody Screen Crossmatch Med Orders - Current: Current Medications Albuterol (Ventolin Hfa) 8 gm INH QID PRN PRN Reason: Shortness of Breath Calcium Carbonate (Caltrate 600+D 1500 Mg-400 Units) 1 tab PO DAILY [facility] Haloperidol Lactate (Haldol) 2 mg IM Q6H PRN PRN Reason: Agitation Last Admin: 04/20/16 00:56 Dose: 2 mg Sodium Chloride (Normal Saline) 1,000 mls @ 100 mls/hr IV ASDIRECTED [facility] Last Admin: 04/20/16 05:07 Dose: 100 mls/hr Mirtazapine (Remeron) 15 mg PO BEDTIME [facility] Last Admin: 04/19/16 20:40 Dose: 15 mg Morphine Sulfate (Morphine) 2 mg IVPUSH Q2H PRN PRN Reason: Pain (severe 7-10) Ondansetron HCl (Zofran) 4 mg IVPUSH Q4H PRN PRN Reason: Pain Oxycodone HCl (Oxycodone) 5 mg PO QID PRN PRN Reason: Pain Last Admin: 04/20/16 00:16 Dose: 5 mg Pramipexole Dihydrochloride (Mirapex) 0.5 mg PO BEDTIME [facility] Last Admin: 04/19/16 20:40 Dose: 0.5 mg Prochlorperazine Maleate (Compazine) 10 mg PO ASDIRECTED PRN PRN Reason: asdirected Wound Care/Dressing Products (Duoderm Cgf) 1 each TOP ASDIRECTED PRN PRN Reason: open area Last Admin: 04/19/16 16:36 Dose: 1 each Zaleplon (Sonata) 5 mg PO BEDTIME PRN PRN Reason: Insomnia Last Admin: 04/19/16 23:18 Dose: 5 mg Discontinued Medications Calcium Carbonate/Glycine (Tums) 1,000 mg PO ONETIME ONE Stop: 04/19/16 16:46 Last Admin: 04/19/16 17:10 Dose: 1,000 mg Calcium Gluconate (Calcium Gluconate) 1 gm IV ONETIME ONE Stop: 04/20/16 07:44 Last Admin: 04/20/16 07:55 Dose: 1 gm - Exam Quality Assessment: supplemental oxygen, DVT prophylaxis (SCDs) HEENT: Pupils equal, Pupils reactive, EOMI, Mucous membr. moist/pink Neck: supple, no JVD Lungs: Other (lear to L lung miles, decreased to no lung sounds to R base, diminished to upper and mid lobes) Cardiovascular: Regular Rate, Regular Rhythm, No Murmurs Abdomen: bowel sounds present, soft, no tenderness, no distension Extremities: no edema, normal pulses, no tenderness/swelling Skin: warm, dry Wound/Incisions: decubitis (stage two, gluteal cleft near sacrum, Duoderm intact. no erythema noted) Psy/Mental Status: alert - Problem List & Annotations (1) Generalized weakness SNOMED Code(s): 81552663 Code(s): R53.1 - WEAKNESS Status: Acute Current Visit: Yes (2) Failure to thrive SNOMED Code(s): 70044978 Code(s): NTB3842 - Status: Acute Current Visit: Yes (3) Dehydration SNOMED Code(s): 81758513 Code(s): E86.0 - DEHYDRATION Status: Acute Current Visit: Yes (4) Malignant pleural effusion SNOMED Code(s): 06086627 Code(s): J91.0 - MALIGNANT PLEURAL EFFUSION Status: Acute Current Visit: No (5) Adenocarcinoma of lung, stage 4 SNOMED Code(s): 872414118, 579741607 Code(s): C34.90 - MALIGNANT NEOPLASM OF UNSP PART OF UNSP BRONCHUS OR LUNG Status: Chronic Current Visit: Yes Qualifiers: Laterality: right Qualified Code(s): C34.91 - Malignant neoplasm of unspecified part of right bronchus or lung (6) Hypoxia SNOMED Code(s): 954718260, 505115162 Code(s): R09.02 - HYPOXEMIA Status: Chronic Current Visit: No - Problem List Review Problem List Initiated/Reviewed/Updated: Yes - My Orders Last 24 Hours: My Active Orders 04/19/16 14:37 Communication Order [RC] ROUTINE 04/19/16 14:49 Patient Status [ADT] Routine May Shower [RC] ASDIRECTED Oxygen Therapy [RC] PRN Up ad Iqra [RC] ASDIRECTED Vital Signs [RC] Q4H Morphine 2 mg IVPUSH Q2H PRN Ondansetron [Zofran] 4 mg IVPUSH Q4H PRN Resuscitation Status Routine 04/19/16 14:50 Intake and Output [RC] Q12H 04/19/16 14:51 Antiembolic Devices [RC] Q4H Sequential Compression Device [OM.PC] Per Unit Routine 04/19/16 14:52 PAINT POURER Evaluation and Treatment [CONS] Routine Transfuse Red Blood Cells [COMM] Routine 04/19/16 15:00 Sodium Chloride 0.9% [Normal Saline] 1,000 ml IV ASDIRECTED 04/19/16 15:12 Albuterol [Ventolin HFA] 8 gm INH QID PRN Prochlorperazine [Compazine] 10 mg PO ASDIRECTED PRN Zaleplon [Sonata] 5 mg PO BEDTIME PRN oxyCODONE 5 mg PO QID PRN 04/19/16 15:15 RED BLOOD CELLS LP [BBK] Routine TYPE AND SCREEN [BBK] Routine 04/19/16 16:09 Communication Order [RC] DAILY OCCULT BLOOD DIAGNOSTIC [OP] Routine 04/19/16 16:11 Hydrocolloid Dressing [DuoDerm CGF] 1 each TOP ASDIRECTED PRN 04/19/16 16:16 Turn and Reposition [RC] Q2H 04/19/16 21:00 Mirtazapine [Remeron] 15 mg PO BEDTIME Pramipexole [Mirapex] 0.5 mg PO BEDTIME 04/19/16 Dinner Regular Diet [DIET] 04/20/16 04:35 PHOSPHORUS [CHEM] Routine 04/20/16 08:00 PT Evaluation and Treatment [CONS] Routine 04/20/16 09:00 Calcium Carbonate/Vitamin D3 [Caltrate 600+D 1500 MG-400 Units] 1 tab PO DAILY 04/20/16 13:00 HEMOGLOBIN/HEMATOCRIT,HH [HEME] Routine 04/21/16 05:00 COMPREHENSIVE METABOLIC PN,CMP [CHEM] DAILY MAGNESIUM [CHEM] DAILY 04/21/16 05:11 CBC WITH AUTO DIFF [HEME] AM 04/21/16 07:00 Thoracentesis W/ US Guide [US] Routine 04/22/16 05:00 COMPREHENSIVE METABOLIC PN,CMP [CHEM] DAILY MAGNESIUM [CHEM] DAILY 04/22/16 05:11 CBC WITH AUTO DIFF [HEME] AM - Plan Plan:: This 70 year old male admitted with generalized weakness, dehydration, and anemia with pmh of 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 1. Generalized weakness: PT to evaluate and treat in the am. Likely secondary to lung ca, dehydration and anemia. 2. Anemia: Hgb noted to be 8.5, Did transfuse 1 unit yesterday. With hydration it lowered again, will transfer 2 units today and monitor hgb. 3. Dehydration: Will provide IVFs NS 100 for now. Monitor. Encourage PO intake 4. Failure to thrive: Continues to lose weight and not eating well at home. Will consult dietary to assist family in dietary needs. Started Remeron for appetite stimulant. Will monitor. Consulted ST who recommends barium video swallow study to evaluate for silent aspiration. 5. Pleural effusion: Secondary to adenocarcinoma. Therapeutic thoracentesis today with Dr. Rico. 6. Stage IV lung ca: Received chemo April 08, next scheduled is April 29. Spoke with Huseyin regarding goals of treatment. "Do everything you can, we are not ready to throw in the towel." "Just make him stronger, lets start there. " Reports does what him to be FULL CODE. Per Dr. Marlow's Progress note on 2016, prognosis listed as "extremely poor". "Chemotherapy would be an attempt to slow progression and allow him to overall feel and function better, and hopefully decrease frequency of thoracentesis." still reports wanting everything done, was again told chemotherapy is not curative, but to slow the progression and diminish how many times he needs to have a thoracentesis. Will schedule appointment with Dr. Marlow of of this week. 7. Hypocalcemia: Will supplement and monitor. Continue Calcium + Vit D, will start this tomorrow. VTE: SCDs. Start Lovenox after thoracentesis. Dispo: 1-2 days pending improvement. May be ready for discharge in am.
[2016-04-20] MEDS: Calcium Carbonate/Vitamin D3 1500 MG-400 Units Tab PO SCH (08:29)
[2016-04-20] MEDS: Ondansetron 4 MG/2 ML SDV IVPUSH PRN (08:54)
[2016-04-20] MEDS: Phosphorus #1 250 MG Tab PO SCH ×4 (10:57→23:25)
--- NOTE | 2016-04-20 11:06 | PCM.PN ---
- General Info Date of Service: 04/20/16 Admission Dx/Problem (Free Text): Admission Diagnosis/Problem Admission Diagnosis/Problem Dehydration - Patient Data Vitals - most recent: Last Vital Signs Temp 99.9 F 04/20/16 08:00 Pulse 77 04/20/16 08:00 Resp 15 04/20/16 08:00 BP 110/41 L 04/20/16 08:00 Pulse Ox 90 L 04/20/16 08:00 Weight - most recent: 75.9 kg I&O - last 24 hours: Intake & Output 04/19/16 04/20/16 04/20/16 22:59 06:59 14:59 Intake Total 350 1100 Output Total 0 1100 Balance 350 0 Lab Results last 24 hrs: Laboratory Results - last 24 hr 04/19/16 04/19/16 04/19/16 Range/Units 12:50 15:15 21:20 WBC (4.0-11.0) K/uL RBC (4.50-5.90) M/uL Hgb 8.9 L (13.0-17.0) g/dL Hct 26.4 L (38.0-50.0) % MCV (80.0-98.0) fL MCH (27.0-32.0) pg MCHC (31.0-37.0) g/dL RDW Std Deviation (28.0-62.0) fl RDW Coeff of Vivienne (11.0-15.0) % Plt Count (150-400) K/uL MPV (7.40-12.00) fL Add Manual Diff Neutrophils % (Manual) (48.0-80.0) % Band Neutrophils % % Lymphocytes % (Manual) (16.0-40.0) % Monocytes % (Manual) (0.0-15.0) % Eosinophils % (Manual) (0.0-7.0) % Nucleated RBC % /100WBC Absolute Seg Neuts Band Neutrophils # Lymphocytes # (Manual) Monocytes # (Manual) Eosinophils # (Manual) Nucleated RBCs # K/uL Sodium (136-146) mmol/L Potassium (3.5-5.1) mmol/L Chloride (98-110) mmol/L Carbon Dioxide (21-31) mmol/L BUN (6.0-23.0) mg/dL Creatinine (0.6-1.5) mg/dL Est Cr Clr Drug Dosing mL/min Estimated GFR (MDRD) ml/min Glucose (60-110) mg/dL Calcium (8.8-10.8) mg/dL Phosphorus (2.4-4.7) mg/dL Magnesium 1.8 (1.5-2.3) mEq/L Total Bilirubin (0.1-1.5) mg/dL AST (5-40) IU/L ALT (8-54) IU/L Alkaline Phosphatase (40-150) Total Protein (6.0-8.0) g/dL Albumin (3.4-4.8) g/dL Globulin (2.0-3.5) g/dL Albumin/Globulin Ratio (1.3-2.8) Blood Type O POSITIVE Antibody Screen NEGATIVE Crossmatch See Detail 04/20/16 04/20/16 04/20/16 Range/Units 04:35 04:35 04:35 WBC 5.23 (4.0-11.0) K/uL RBC 3.03 L (4.50-5.90) M/uL Hgb 8.5 L (13.0-17.0) g/dL Hct 25.9 L (38.0-50.0) % MCV 85.5 (80.0-98.0) fL MCH 28.1 (27.0-32.0) pg MCHC 32.8 (31.0-37.0) g/dL RDW Std Deviation 44.2 (28.0-62.0) fl RDW Coeff of Vivienne 16 H (11.0-15.0) % Plt Count 153 (150-400) K/uL MPV 10.10 (7.40-12.00) fL Add Manual Diff YES Neutrophils % (Manual) 77 (48.0-80.0) % Band Neutrophils % 6 % Lymphocytes % (Manual) 7 L (16.0-40.0) % Monocytes % (Manual) 7 (0.0-15.0) % Eosinophils % (Manual) 3 (0.0-7.0) % Nucleated RBC % 0.0 /100WBC Absolute Seg Neuts 4.0 Band Neutrophils # 0.3 Lymphocytes # (Manual) 0.4 Monocytes # (Manual) 0.4 Eosinophils # (Manual) 0.2 Nucleated RBCs # 0 K/uL Sodium 141 (136-146) mmol/L Potassium 4.4 (3.5-5.1) mmol/L Chloride 108 (98-110) mmol/L Carbon Dioxide 24 (21-31) mmol/L BUN 10 (6.0-23.0) mg/dL Creatinine 0.6 (0.6-1.5) mg/dL Est Cr Clr Drug Dosing 128.43 mL/min Estimated GFR (MDRD) > 60.0 ml/min Glucose 86 (60-110) mg/dL Calcium 6.9 L (8.8-10.8) mg/dL Phosphorus 1.8 L (2.4-4.7) mg/dL Magnesium 1.9 (1.5-2.3) mEq/L Total Bilirubin 1.0 (0.1-1.5) mg/dL AST 73 H (5-40) IU/L ALT 51 (8-54) IU/L Alkaline Phosphatase 93 (40-150) Total Protein 4.9 L (6.0-8.0) g/dL Albumin 2.4 L (3.4-4.8) g/dL Globulin 2.5 (2.0-3.5) g/dL Albumin/Globulin Ratio 1.0 L (1.3-2.8) Blood Type Antibody Screen Crossmatch Med Orders - Current: Current Medications Albuterol (Ventolin Hfa) 8 gm INH QID PRN PRN Reason: Shortness of Breath Calcium Carbonate (Caltrate 600+D 1500 Mg-400 Units) 1 tab PO DAILY [facility] Last Admin: 04/20/16 08:29 Dose: 1 tab Haloperidol Lactate (Haldol) 2 mg IM Q6H PRN PRN Reason: Agitation Last Admin: 04/20/16 00:56 Dose: 2 mg Sodium Chloride (Normal Saline) 1,000 mls @ 100 mls/hr IV ASDIRECTED [facility] Last Admin: 04/20/16 05:07 Dose: 100 mls/hr Mirtazapine (Remeron) 15 mg PO BEDTIME [facility] Last Admin: 04/19/16 20:40 Dose: 15 mg Morphine Sulfate (Morphine) 2 mg IVPUSH Q2H PRN PRN Reason: Pain (severe 7-10) Ondansetron HCl (Zofran) 4 mg IVPUSH Q4H PRN PRN Reason: Pain Last Admin: 04/20/16 08:54 Dose: 4 mg Oxycodone HCl (Oxycodone) 5 mg PO QID PRN PRN Reason: Pain Last Admin: 04/20/16 00:16 Dose: 5 mg Pramipexole Dihydrochloride (Mirapex) 0.5 mg PO BEDTIME [facility] Last Admin: 04/19/16 20:40 Dose: 0.5 mg Prochlorperazine Maleate (Compazine) 10 mg PO ASDIRECTED PRN PRN Reason: asdirected Sodium Phosphate (Neutra-Phos) 250 mg PO QID [facility] Stop: 04/21/16 00:01 Last Admin: 04/20/16 10:57 Dose: 250 mg Wound Care/Dressing Products (Duoderm Cgf) 1 each TOP ASDIRECTED PRN PRN Reason: open area Last Admin: 04/19/16 16:36 Dose: 1 each Zaleplon (Sonata) 5 mg PO BEDTIME PRN PRN Reason: Insomnia Last Admin: 04/19/16 23:18 Dose: 5 mg Discontinued Medications Calcium Carbonate/Glycine (Tums) 1,000 mg PO ONETIME ONE Stop: 04/19/16 16:46 Last Admin: 04/19/16 17:10 Dose: 1,000 mg Calcium Gluconate (Calcium Gluconate) 1 gm IV ONETIME ONE Stop: 04/20/16 07:44 Last Admin: 04/20/16 07:55 Dose: 1 gm - Problem List & Annotations (1) Generalized weakness SNOMED Code(s): 70201365 Code(s): R53.1 - WEAKNESS Status: Acute Current Visit: Yes (2) Failure to thrive SNOMED Code(s): 88901397 Code(s): VVF3162 - Status: Acute Current Visit: Yes (3) Dehydration SNOMED Code(s): 24229126 Code(s): E86.0 - DEHYDRATION Status: Acute Current Visit: Yes (4) Malignant pleural effusion SNOMED Code(s): 36583674 Code(s): J91.0 - MALIGNANT PLEURAL EFFUSION Status: Acute Current Visit: No (5) Adenocarcinoma of lung, stage 4 SNOMED Code(s): 031800952, 669529750 Code(s): C34.90 - MALIGNANT NEOPLASM OF UNSP PART OF UNSP BRONCHUS OR LUNG Status: Chronic Current Visit: Yes Qualifiers: Laterality: right Qualified Code(s): C34.91 - Malignant neoplasm of unspecified part of right bronchus or lung (6) Hypoxia SNOMED Code(s): 178221137, 927396155 Code(s): R09.02 - HYPOXEMIA Status: Chronic Current Visit: No - My Orders Last 24 Hours: My Active Orders 04/19/16 14:37 Communication Order [RC] ROUTINE 04/19/16 14:49 Patient Status [ADT] Routine June Shower [RC] ASDIRECTED Oxygen Therapy [RC] PRN Up ad Iqra [RC] ASDIRECTED Vital Signs [RC] Q4H Morphine 2 mg IVPUSH Q2H PRN Ondansetron [Zofran] 4 mg IVPUSH Q4H PRN Resuscitation Status Routine 04/19/16 14:50 Intake and Output [RC] Q12H 04/19/16 14:51 Antiembolic Devices [RC] Q4H Sequential Compression Device [OM.PC] Per Unit Routine 04/19/16 14:52 COUNTRY MANAGER Evaluation and Treatment [CONS] Routine Transfuse Red Blood Cells [COMM] Routine 04/19/16 15:00 Sodium Chloride 0.9% [Normal Saline] 1,000 ml IV ASDIRECTED 04/19/16 15:12 Albuterol [Ventolin HFA] 8 gm INH QID PRN Prochlorperazine [Compazine] 10 mg PO ASDIRECTED PRN Zaleplon [Sonata] 5 mg PO BEDTIME PRN oxyCODONE 5 mg PO QID PRN 04/19/16 15:15 RED BLOOD CELLS LP [BBK] Routine TYPE AND SCREEN [BBK] Routine 04/19/16 16:09 Communication Order [RC] DAILY OCCULT BLOOD DIAGNOSTIC [OP] Routine 04/19/16 16:11 Hydrocolloid Dressing [DuoDerm CGF] 1 each TOP ASDIRECTED PRN 04/19/16 16:16 Turn and Reposition [RC] Q2H 04/19/16 21:00 Mirtazapine [Remeron] 15 mg PO BEDTIME Pramipexole [Mirapex] 0.5 mg PO BEDTIME 04/19/16 Dinner Regular Diet [DIET] 04/20/16 07:00 Thoracentesis W/ US Guide [US] Routine 04/20/16 08:00 PT Evaluation and Treatment [CONS] Routine 04/20/16 09:00 Calcium Carbonate/Vitamin D3 [Caltrate 600+D 1500 MG-400 Units] 1 tab PO DAILY 04/20/16 10:00 Phosphorus #1 [Neutra-Phos] 250 mg PO QID 04/20/16 10:39 Transfuse PRBC [Transfuse Red Blood Cells] [COMM] Routine 04/20/16 13:00 HEMOGLOBIN/HEMATOCRIT,HH [HEME] Routine 04/21/16 05:00 COMPREHENSIVE METABOLIC PN,CMP [CHEM] DAILY MAGNESIUM [CHEM] DAILY 04/21/16 05:11 CBC WITH AUTO DIFF [HEME] AM 04/22/16 05:00 COMPREHENSIVE METABOLIC PN,CMP [CHEM] DAILY MAGNESIUM [CHEM] DAILY 04/22/16 05:11 CBC WITH AUTO DIFF [HEME] AM - Plan Plan:: This 70 year old male admitted with generalized weakness, dehydration, and anemia with pmh of 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 1. Generalized weakness: PT to evaluate and treat in the am. Likely secondary to lung ca, dehydration and anemia. 2. Anemia: Hgb noted to be 8.9, down from 10.9 2 weeks ago. Received chemo on April 08. No active bleeding noted. Will transfuse 1 unit and monitor hgb and response. 3. Dehydration: Will provide IVFs NS 100 for now. Monitor. Encourage PO intake 4. Failure to thrive: Continues to lose weight and not eating well at home. WIll consult dietary to assist family in dietary needs. Will also start Remeron for appetite stimulant. Will monitor. Will consult ST to evaluate swallowing. 5. Pleural effusion: Secondary to adenocarcinoma. Will order for therapeutic thoracentesis in am when Dr. Rico available. R upper and R lower infiltrate and atelectasis noted on CXR, does not appear to be acutely ill. No Leukocytosis , no fever. Will monitor, just finished course of antibiotics, Augmentin and Flagyl. Will not start antibiotics at this time. 6. Stage IV lung ca: Received chemo April 08, next scheduled is April 29. Spoke with Huseyin regarding goals of treatment. "Do everything you can, we are not ready to throw in the towel." "Just make him stronger, lets start there. " Reports does what him to be FULL CODE. Per Dr. Marlow's Progress note on 2016, prognosis listed as "extremely poor". "Chemotherapy would be an attempt to slow progression and allow him to overall feel and function better, and hopefully decrease frequency of thoracentesis." 7. Hypocalcemia: Will supplement and monitor. Per recommendations of Dr. Marlow, due to being treated with Xgeva for osseous metastases he should be taking Calcium + Vit D, will start this tomorrow. VTE: SCDs. Dispo: 2-4 days pending improvement.
--- NOTE | 2016-04-20 13:18 | US ---
EXAMINATION: Ultrasound guided right thoracentesis. HISTORY: Right pleural effusion. Technique/findings: The procedure, benefits and risks were discussed with the patient. Following w ritten informed consent was obtained from the patient, under ultrasound guidance and utilizing 1% li docaine as local anesthesia the right pleural effusion was accessed using a 5 Bulgarian one-step needle . Following access the catheter was placed into the effusion, 1800 cc of pleural effusion was drain ed. US images demonstrate a minimal residual pleural effusion. The patient tolerated the procedure well. IMPRESSION: Successful ultrasound guided right thoracentesis. Fluid was dark red.
--- NOTE | 2016-04-20 15:07 | CR ---
EXAMINATION: Oropharyngeal video swallow study. HISTORY: Lung cancer COMPARISON: None TECHNIQUE: Bilateral images obtained, speech pathologist present, various barium consistencies provi ded. FINDINGS: There is adequate bolus formation and transfer. There is tracheal elevation and epiglottic inversion. However the single swallowing attempts visualized within liquids had already resulted in aspiration by the time the epiglottic inversion. This was most notably from premature spillage. IMPRESSION: 1. Aspiration is noted with thin liquids. No other consistencies attempted.
[2016-04-20] MEDS: Enoxaparin 40 MG/0.4 ML Syringe SUBCUT SCH (17:08)
[2016-04-20] MEDS: Pramipexole 0.25 MG Tab PO SCH (21:22)
[2016-04-20] MEDS: Mirtazapine 15 MG Tab.DIS PO SCH (21:23)
[2016-04-21] MEDS: Ondansetron 4 MG/2 ML SDV IVPUSH PRN (01:09)
[2016-04-21] MEDS: Morphine 2 MG/ML Syringe IVPUSH PRN ×2 (01:09→23:37)
[2016-04-21] MEDS: Haloperidol Lactate 5 MG/ML SDV IM PRN ×2 (05:05→22:15)
[2016-04-21 05:38] LABS: CHLORIDE,CL 112 mmol/L (98-110); SODIUM,NA 143 mmol/L (136-146)
[2016-04-21] MEDS ORDERED: Phosphorus #1 250 MG Tab PO STA (06:36)
[2016-04-21] MEDS: Sodium Chloride 0.9% 1,000 ML IV SCH ×2 (06:38→17:01)
[2016-04-21] MEDS: Calcium Carbonate/Vitamin D3 1500 MG-400 Units Tab PO SCH (08:00)
--- NOTE | 2016-04-21 08:41 | PCM.PN ---
- General Info Date of Service: 04/21/16 Admission Dx/Problem (Free Text): Admission Diagnosis/Problem Admission Diagnosis/Problem Dehydration Subjective Update: Confused this morning received Haldol last evening for agitation. States he did not sleep well. not present on exam on first rounds. Will talk with Dr. Scott on second rounds. Functional Status: Reports: pain controlled - Review of Systems General: Denies: Fever, Weakness Pulmonary: Denies: shortness of breath, pleuritic chest pain, wheezing Cardiovascular: Denies: Chest Pain, Palpitations, Edema Gastrointestinal: Reports: Difficulty swallowing. Denies: Abdominal pain Genitourinary: Denies: dysuria, hematuria Musculoskeletal: Denies: neck pain, leg pain Skin: Denies: cyanosis, bruising Neurological: Reports: Confusion. Denies: Dizziness, Headache Psychiatric: Reports: confusion, agitation - Patient Data Vitals - most recent: Last Vital Signs Temp 36.9 C 04/21/16 07:53 Pulse 80 04/21/16 07:53 Resp 18 04/21/16 07:53 BP 114/62 04/21/16 07:53 Pulse Ox 93 L 04/21/16 07:53 Weight - most recent: 76.4 kg I&O - last 24 hours: Intake & Output 04/20/16 04/21/16 04/21/16 22:59 06:59 14:59 Intake Total 2330 340 Output Total 500 875 Balance 1830 -535 Lab Results last 24 hrs: Laboratory Results - last 24 hr 04/19/16 04/20/16 04/20/16 Range/Units 15:15 04:35 19:10 WBC (4.0-11.0) K/uL RBC (4.50-5.90) M/uL Hgb 10.3 L (13.0-17.0) g/dL Hct 30.5 L (38.0-50.0) % MCV (80.0-98.0) fL MCH (27.0-32.0) pg MCHC (31.0-37.0) g/dL RDW Std Deviation (28.0-62.0) fl RDW Coeff of Vivienne (11.0-15.0) % Plt Count (150-400) K/uL MPV (7.40-12.00) fL Add Manual Diff Neutrophils % (Manual) (48.0-80.0) % Band Neutrophils % % Lymphocytes % (Manual) (16.0-40.0) % Monocytes % (Manual) (0.0-15.0) % Eosinophils % (Manual) (0.0-7.0) % Nucleated RBC % /100WBC Absolute Seg Neuts Band Neutrophils # Lymphocytes # (Manual) Monocytes # (Manual) Eosinophils # (Manual) Nucleated RBCs # K/uL Sodium (136-146) mmol/L Potassium (3.5-5.1) mmol/L Chloride (98-110) mmol/L Carbon Dioxide (21-31) mmol/L BUN (6.0-23.0) mg/dL Creatinine (0.6-1.5) mg/dL Est Cr Clr Drug Dosing mL/min Estimated GFR (MDRD) ml/min Glucose (60-110) mg/dL Calcium (8.8-10.8) mg/dL Phosphorus 1.8 L (2.4-4.7) mg/dL Magnesium (1.5-2.3) mEq/L Total Bilirubin (0.1-1.5) mg/dL AST (5-40) IU/L ALT (8-54) IU/L Alkaline Phosphatase (40-150) Total Protein (6.0-8.0) g/dL Albumin (3.4-4.8) g/dL Globulin (2.0-3.5) g/dL Albumin/Globulin Ratio (1.3-2.8) Blood Type O POSITIVE Antibody Screen NEGATIVE Crossmatch See Detail 04/21/16 04/21/16 Range/Units 05:03 05:03 WBC 6.26 (4.0-11.0) K/uL RBC 3.64 L (4.50-5.90) M/uL Hgb 10.5 L (13.0-17.0) g/dL Hct 31.3 L (38.0-50.0) % MCV 86.0 (80.0-98.0) fL MCH 28.8 (27.0-32.0) pg MCHC 33.5 (31.0-37.0) g/dL RDW Std Deviation 45.0 (28.0-62.0) fl RDW Coeff of Vivienne 16 H (11.0-15.0) % Plt Count 109 L (150-400) K/uL MPV 9.90 (7.40-12.00) fL Add Manual Diff YES Neutrophils % (Manual) 69 (48.0-80.0) % Band Neutrophils % 8 % Lymphocytes % (Manual) 6 L (16.0-40.0) % Monocytes % (Manual) 12 (0.0-15.0) % Eosinophils % (Manual) 5 (0.0-7.0) % Nucleated RBC % 0.0 /100WBC Absolute Seg Neuts 4.3 Band Neutrophils # 0.5 Lymphocytes # (Manual) 0.4 Monocytes # (Manual) 0.8 Eosinophils # (Manual) 0.3 Nucleated RBCs # 0 K/uL Sodium 143 (136-146) mmol/L Potassium 3.8 (3.5-5.1) mmol/L Chloride 112 H (98-110) mmol/L Carbon Dioxide 22 (21-31) mmol/L BUN 7 (6.0-23.0) mg/dL Creatinine 0.6 (0.6-1.5) mg/dL Est Cr Clr Drug Dosing 128.74 mL/min Estimated GFR (MDRD) > 60.0 ml/min Glucose 98 (60-110) mg/dL Calcium 6.7 L (8.8-10.8) mg/dL Phosphorus 2.2 L (2.4-4.7) mg/dL Magnesium 1.7 (1.5-2.3) mEq/L Total Bilirubin 1.0 (0.1-1.5) mg/dL AST 72 H (5-40) IU/L ALT 46 (8-54) IU/L Alkaline Phosphatase 95 (40-150) Total Protein 4.8 L (6.0-8.0) g/dL Albumin 2.3 L (3.4-4.8) g/dL Globulin 2.5 (2.0-3.5) g/dL Albumin/Globulin Ratio 0.9 L (1.3-2.8) Blood Type Antibody Screen Crossmatch Med Orders - Current: Current Medications Albuterol (Ventolin Hfa) 8 gm INH QID PRN PRN Reason: Shortness of Breath Calcium Carbonate (Caltrate 600+D 1500 Mg-400 Units) 1 tab PO DAILY [facility] Last Admin: 04/21/16 08:00 Dose: 1 tab Enoxaparin Sodium (Lovenox) 40 mg SUBCUT Q24H [facility] Last Admin: 04/20/16 17:08 Dose: 40 mg Haloperidol Lactate (Haldol) 2 mg IM Q6H PRN PRN Reason: Agitation Last Admin: 04/21/16 05:05 Dose: 2 mg Sodium Chloride (Normal Saline) 1,000 mls @ 100 mls/hr IV ASDIRECTED [facility] Last Admin: 04/21/16 06:38 Dose: 100 mls/hr Mirtazapine (Remeron) 15 mg PO BEDTIME [facility] Last Admin: 04/20/16 21:23 Dose: 15 mg Morphine Sulfate (Morphine) 2 mg IVPUSH Q2H PRN PRN Reason: Pain (severe 7-10) Last Admin: 04/21/16 01:09 Dose: 2 mg Ondansetron HCl (Zofran) 4 mg IVPUSH Q4H PRN PRN Reason: Pain Last Admin: 04/21/16 01:09 Dose: 4 mg Oxycodone HCl (Oxycodone) 5 mg PO QID PRN PRN Reason: Pain Last Admin: 04/20/16 23:24 Dose: 5 mg Pramipexole Dihydrochloride (Mirapex) 0.5 mg PO BEDTIME [facility] Last Admin: 04/20/16 21:22 Dose: 0.5 mg Prochlorperazine Maleate (Compazine) 10 mg PO ASDIRECTED PRN PRN Reason: asdirected Wound Care/Dressing Products (Duoderm Cgf) 1 each TOP ASDIRECTED PRN PRN Reason: open area Last Admin: 04/19/16 16:36 Dose: 1 each Zaleplon (Sonata) 5 mg PO BEDTIME PRN PRN Reason: Insomnia Last Admin: 04/20/16 23:25 Dose: 5 mg Discontinued Medications Calcium Carbonate/Glycine (Tums) 1,000 mg PO ONETIME ONE Stop: 04/19/16 16:46 Last Admin: 04/19/16 17:10 Dose: 1,000 mg Calcium Gluconate (Calcium Gluconate) 1 gm IV ONETIME ONE Stop: 04/20/16 07:44 Last Admin: 04/20/16 07:55 Dose: 1 gm Sodium Phosphate (Neutra-Phos) 250 mg PO QID [facility] Stop: 04/21/16 00:01 Last Admin: 04/20/16 23:25 Dose: 250 mg Sodium Phosphate (Neutra-Phos) 250 mg PO ONETIME [facility] Stop: 04/21/16 06:37 Last Admin: 04/21/16 06:44 Dose: 250 mg - Exam Quality Assessment: supplemental oxygen, DVT prophylaxis General: alert, cooperative, no acute distress HEENT: Pupils equal, Pupils reactive, EOMI, Mucous membr. moist/pink Neck: supple, trachea midline Lungs: Clear to auscultation, Normal respiratory effort Cardiovascular: Regular Rate, Regular Rhythm Abdomen: bowel sounds present, soft, no tenderness, no distension Extremities: no edema, normal pulses, no calf tenderness Peripheral Pulses: 2+: radial (L), radial (R), posterior tibial (L), posterior tibial (R), dorsalis pedis (L), dorsalis pedis (R) Skin: warm, dry, intact Psy/Mental Status: anxious, agitated - Problem List & Annotations (1) Dehydration SNOMED Code(s): 90281829 Code(s): E86.0 - DEHYDRATION Status: Acute Priority: Medium Current Visit: Yes (2) Failure to thrive SNOMED Code(s): 53375478 Code(s): RAA6330 - Status: Chronic Priority: High Current Visit: Yes (3) Generalized weakness SNOMED Code(s): 82667113 Code(s): R53.1 - WEAKNESS Status: Chronic Priority: High Current Visit : Yes (4) Adenocarcinoma of lung, stage 4 SNOMED Code(s): 084629345, 521450069 Code(s): C34.90 - MALIGNANT NEOPLASM OF UNSP PART OF UNSP BRONCHUS OR LUNG Status: Chronic Priority: High Current Visit: Yes Qualifiers: Laterality: right Qualified Code(s): C34.91 - Malignant neoplasm of unspecified part of right bronchus or lung (5) Lung cancer SNOMED Code(s): 069407277 Code(s): C34.90 - MALIGNANT NEOPLASM OF UNSP PART OF UNSP BRONCHUS OR LUNG Status: Chronic Priority: High Current Visit: No Qualifiers: Laterality: right Lung location: unspecified part of lung Qualified Code( s): C34.91 - Malignant neoplasm of unspecified part of right bronchus or lung (6) Malignant pleural effusion SNOMED Code(s): 80629211 Code(s): J91.0 - MALIGNANT PLEURAL EFFUSION Status: Acute Priority: High Current Visit: Yes - Problem List Review Problem List Initiated/Reviewed/Updated: Yes - Plan Plan:: 70 year old male admitted with generalized weakness, dehydration, and anemia with pmh of 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 1. Generalized weakness: Will talk with PT today after they assess him this morning. This is most likely secondary to lung ca, dehydration and anemia. 2. Anemia: Patient did recieve 2 units yesterday and had a good responce Hgb 8.5 to now 10.5. Most likely anemia of chronic disease. 3. Dehydration: Still on IVFs at 100. Encourage PO intake if not too confused. Will possible d/c today. 4. Failure to thrive: Video fluoro showed aspiration with thin liquids yesterday. Dietary unable to get good bedside and think he may have silent aspiration and cannot recommend any unsafe diet. Patient was started on Remeron yesterday for appetite stimulant but still not eating well. Will continue to monitor. 5. Pleural effusion: Secondary to adenocarcinoma. Therapeutic thoracentesis yesterday with Dr. Rico removed 2 liters of fluid. Still some bibasilar rales on exam. Will continue to monitor but with adenocarcinoma he may will most likely need additional thoracentesis in the near future. Still requiring 4 L which is his previous home baseline before admission. 6. Stage IV lung ca with brain mets: Received chemo April 08, next scheduled is April 29. Dr. Marlow, his oncologist, is scheduled to see him tomorrow April 22 but has stated that his prognosis is not good. She will see him here if he is still in the hospital. Family still wants everything done. 7. Hypocalcemia: Continuing to supplement and monitor on Calcium + Vit D. VTE: SCDs. Lovenox restarted. Dispo: 1-2 days pending improvement.
[2016-04-21] MEDS: oxyCODONE 5 MG Tab PO PRN (09:45)
--- NOTE | 2016-04-21 11:11 | CR ---
EXAMINATION: Two-view chest (PA and Lateral views). HISTORY: Status post thoracentesis. FINDINGS: The trachea is midline. There is a small to moderate isolated right pleural effusion, moderately imp roved compared to the day prior. Dense consolidation is noted within the right lung with increasing since consolidation within the left lung base. No pneumothorax. Heart is normal in size. Osseous structures appear unremarkable. IMPRESSION: 1. Small to moderate loculated right pleural effusion with increasing adjacent consolidation. 2. New mild left basilar consolidation.
[2016-04-21] MEDS: Enoxaparin 40 MG/0.4 ML Syringe SUBCUT SCH (17:36)
[2016-04-21] MEDS: Phosphorus #1 250 MG Tab PO SCH ×2 (18:05→23:38)
[2016-04-21] MEDS: Albuterol 8 GM Inhaler INH PRN (20:11)
[2016-04-21] MEDS: Pramipexole 0.25 MG Tab PO SCH (21:43)
[2016-04-21] MEDS: Mirtazapine 15 MG Tab.DIS PO SCH (21:47)
[2016-04-22] MEDS: oxyCODONE 5 MG Tab PO PRN (00:37)
[2016-04-22] MEDS: Albuterol 8 GM Inhaler INH PRN ×2 (02:17→09:21)
[2016-04-22] MEDS: Morphine 2 MG/ML Syringe IVPUSH PRN (02:25)
[2016-04-22] MEDS: Sodium Chloride 0.9% 1,000 ML IV SCH (02:39)
[2016-04-22] MEDS: Hydrocolloid Dressing 4x4 Bandage TOP PRN ×2 (03:47→14:11)
[2016-04-22] MEDS: Haloperidol Lactate 5 MG/ML SDV IM PRN ×2 (04:21→10:47)
[2016-04-22 06:32] LABS: CHLORIDE,CL 113 mmol/L (98-110); SODIUM,NA 145 mmol/L (136-146)
[2016-04-22] MEDS: Phosphorus #1 250 MG Tab PO SCH ×3 (06:37→17:17)
[2016-04-22] MEDS: Calcium Carbonate/Vitamin D3 1500 MG-400 Units Tab PO SCH (08:33)
[2016-04-22] MEDS ORDERED: Levofloxacin/Dextrose 5%-Water 750 MG in Premix Bag 1 BAG IV SCH ×3 (09:00→14:00)
[2016-04-22] MEDS ORDERED: Alteplase 2 MG Vial IVPUSH ONE (09:01)
[2016-04-22] MEDS: Piperacillin/Tazobactam 4.5 GM in Sodium Chloride 0.9% 100 ML IV SCH ×2 (09:59→16:22)
--- NOTE | 2016-04-22 11:32 | CT ---
EXAMINATION: Non contrast CT head. Coronal and sagittal reformats. HISTORY: Confusion Comparison: MRI dated 03/29/2016. FINDINGS: No evidence of intra or extra axial hemorrhage, mass, midline shift, hydrocephalus or edema. There is a small subcortical hypodensity within the right medial parietal region, correlating to an area o f metastasis noted on the recent MRI. There is a small cystic space noted adjacent to the posterior horn of the right lateral ventricle, likely a lacunar infarct. No hypoattenuation changes in the major vascular territories to suggest acute infarct. No abnormal intracranial calcifications are detected. No evidence of substantial vascular calcifications. Para nasal sinuses and mastoid air cells are well aerated without substantial findings. Pituitary fossa appears unremarkable. Calvarium is intact. No evidence of skull fracture. IMPRESSION: 1. No acute intracranial finding or hemorrhage. 2. Right subcortical parietal hypodensity correlating to an area of metastatic disease on the prior MRI.
--- NOTE | 2016-04-22 14:19 | PCM.PN ---
- General Info Date of Service: 04/22/16 Admission Dx/Problem (Free Text): Admission Diagnosis/Problem Admission Diagnosis/Problem Dehydration Subjective Update: Restless, confused and agitated during assessment this morning. Reports SOB. No chest pain. - Review of Systems General: Reports: No Symptoms. Denies: Fever HEENT: Reports: no symptoms. Denies: sinus congestion, sore throat Pulmonary: Reports: shortness of breath, cough. Denies: pleuritic chest pain Cardiovascular: Denies: Chest Pain, Edema Gastrointestinal: Reports: No symptoms. Denies: Abdominal pain, Nausea, Vomiting Genitourinary: Reports: no symptoms. Denies: dysuria, frequency, burning Musculoskeletal: Reports: no symptoms Skin: Reports: no symptoms Neurological: Reports: No Symptoms Psychiatric: Reports: no symptoms - Patient Data Vitals - most recent: Last Vital Signs Temp 98.2 F 04/22/16 12:00 Pulse 98 04/22/16 12:00 Resp 20 04/22/16 12:00 BP 129/70 04/22/16 12:00 Pulse Ox 96 04/22/16 12:00 Weight - most recent: 76.5 kg I&O - last 24 hours: Intake & Output 04/21/16 04/22/16 04/22/16 22:59 06:59 14:59 Intake Total 2200 250 Output Total 1000 1525 Balance 1200 -1275 Lab Results last 24 hrs: Laboratory Results - last 24 hr 04/22/16 04/22/16 Range/Units 05:38 06:51 WBC 6.84 (4.0-11.0) K/uL RBC 3.86 L (4.50-5.90) M/uL Hgb 11.1 L (13.0-17.0) g/dL Hct 33.6 L (38.0-50.0) % MCV 87.0 (80.0-98.0) fL MCH 28.8 (27.0-32.0) pg MCHC 33.0 (31.0-37.0) g/dL RDW Std Deviation 47.2 (28.0-62.0) fl RDW Coeff of Vivienne 17 H (11.0-15.0) % Plt Count 231 (150-400) K/uL MPV 9.60 (7.40-12.00) fL Neut % (Auto) 72.5 (48.0-80.0) % Lymph % (Auto) 15.5 L (16.0-40.0) % [place] % (Auto) 9.9 (0.0-15.0) % Eos % (Auto) 1.8 (0.0-7.0) % Baso % (Auto) 0.3 (0.0-1.5) % Neut # 5.0 (1.4-5.7) K/uL Lymph # 1.1 (0.6-2.4) K/uL [place] # 0.7 (0.0-0.8) K/uL Eos # 0.1 (0.0-0.7) K/uL Baso # 0.0 (0.0-0.1) K/uL Nucleated RBC % 0.0 /100WBC Nucleated RBCs # 0 K/uL Sodium 145 (136-146) mmol/L Potassium 4.1 (3.5-5.1) mmol/L Chloride 113 H (98-110) mmol/L Carbon Dioxide 23 (21-31) mmol/L BUN 6 (6.0-23.0) mg/dL Creatinine 0.5 L (0.6-1.5) mg/dL Est Cr Clr Drug Dosing 154.49 mL/min Estimated GFR (MDRD) > 60.0 ml/min Glucose 94 (60-110) mg/dL Calcium 6.5 L (8.8-10.8) mg/dL Phosphorus 2.4 (2.4-4.7) mg/dL Magnesium 1.8 (1.5-2.3) mEq/L Total Bilirubin 0.9 (0.1-1.5) mg/dL AST 77 H (5-40) IU/L ALT 48 (8-54) IU/L Alkaline Phosphatase 102 (40-150) Total Protein 5.1 L (6.0-8.0) g/dL Albumin 2.3 L (3.4-4.8) g/dL Globulin 2.8 (2.0-3.5) g/dL Albumin/Globulin Ratio 0.8 L (1.3-2.8) Lonnie Results last 24 hrs: Microbiology 04/21/16 08:34 Stool Occult Blood (LONNIE) - Final Stool / Feces NEGATIVE OCCULT BLOOD Med Orders - Current: Current Medications Albuterol (Ventolin Hfa) 8 gm INH QID PRN PRN Reason: Shortness of Breath Last Admin: 04/22/16 09:21 Dose: 2 puff Calcium Carbonate (Caltrate 600+D 1500 Mg-400 Units) 1 tab PO DAILY [facility] Last Admin: 04/22/16 08:33 Dose: 1 tab Enoxaparin Sodium (Lovenox) 40 mg SUBCUT Q24H [facility] Last Admin: 04/21/16 17:36 Dose: 40 mg Haloperidol Lactate (Haldol) 2 mg IM Q6H PRN PRN Reason: Agitation Last Admin: 04/22/16 10:47 Dose: 2 mg Sodium Chloride (Normal Saline) 1,000 mls @ 100 mls/hr IV ASDIRECTED [facility] Last Admin: 04/22/16 02:39 Dose: 100 mls/hr Piperacillin Sod/Tazobactam (Sod 4.5 gm/ Sodium Chloride) 100 mls @ 100 mls/hr IV Q6H [facility] Last Admin: 04/22/16 09:59 Dose: 100 mls/hr Vancomycin HCl 1 gm/ Sodium (Chloride) 250 mls @ 166.667 mls/hr IV Q8H [facility] Last Admin: 04/22/16 12:40 Dose: 166.667 mls/hr Levofloxacin/Dextrose 750 mg/ (Premix) 150 mls @ 100 mls/hr IV Q24H [facility] Mirtazapine (Remeron) 15 mg PO BEDTIME [facility] Last Admin: 04/21/16 21:47 Dose: 15 mg Morphine Sulfate (Morphine) 2 mg IVPUSH Q2H PRN PRN Reason: Pain (severe 7-10) Last Admin: 04/22/16 02:25 Dose: 2 mg Ondansetron HCl (Zofran) 4 mg IVPUSH Q4H PRN PRN Reason: Pain Last Admin: 04/21/16 01:09 Dose: 4 mg Oxycodone HCl (Oxycodone) 5 mg PO QID PRN PRN Reason: Pain Last Admin: 04/22/16 00:37 Dose: 5 mg Pramipexole Dihydrochloride (Mirapex) 0.5 mg PO BEDTIME [facility] Last Admin: 04/21/16 21:43 Dose: 0.5 mg Prochlorperazine Maleate (Compazine) 10 mg PO ASDIRECTED PRN PRN Reason: asdirected Sodium Phosphate (Neutra-Phos) 250 mg PO QID [facility] Last Admin: 04/22/16 12:44 Dose: 250 mg Vancomycin HCl (Pharmacy To Dose - Vancomycin) 1 dose .XX ASDIRECTED [facility] Wound Care/Dressing Products (Duoderm Cgf) 1 each TOP ASDIRECTED PRN PRN Reason: open area Last Admin: 04/22/16 14:11 Dose: 1 each Zaleplon (Sonata) 5 mg PO BEDTIME PRN PRN Reason: Insomnia Last Admin: 04/21/16 21:44 Dose: 5 mg Discontinued Medications Alteplase, Recombinant (Cathflo Activase) 4 mg IVPUSH ONETIME ONE Stop: 04/22/16 09:02 Last Admin: 04/22/16 09:48 Dose: 4 mg Calcium Carbonate/Glycine (Tums) 1,000 mg PO ONETIME ONE Stop: 04/19/16 16:46 Last Admin: 04/19/16 17:10 Dose: 1,000 mg Calcium Gluconate (Calcium Gluconate) 1 gm IV ONETIME ONE Stop: 04/20/16 07:44 Last Admin: 04/20/16 07:55 Dose: 1 gm Levofloxacin/Dextrose 750 mg/ (Premix) 150 mls @ 100 mls/hr IV Q24H [facility] Levofloxacin/Dextrose 750 mg/ (Premix) 150 mls @ 100 mls/hr IV Q24H [facility] Last Admin: 04/22/16 12:53 Dose: Not Given Sodium Phosphate (Neutra-Phos) 250 mg PO QID [facility] Stop: 04/21/16 00:01 Last Admin: 04/20/16 23:25 Dose: 250 mg Sodium Phosphate (Neutra-Phos) 250 mg PO ONETIME [facility] Stop: 04/21/16 06:37 Last Admin: 04/21/16 06:44 Dose: 250 mg - Exam Quality Assessment: supplemental oxygen, urine catheter, DVT prophylaxis General: alert, cooperative, other (mildly cachectic in appearance.). No: oriented HEENT: Pupils equal, Pupils reactive, EOMI, Mucous membr. moist/pink Neck: supple Lungs: Crackles (coarse crackles to L lung miles, R has fine crackles and diminished at the bases) Cardiovascular: Regular Rate, Regular Rhythm, No Murmurs Abdomen: bowel sounds present, soft, no tenderness, no distension Extremities: no edema, normal pulses Skin: warm, dry Wound/Incisions: other (duoderm intact to sacrum) Psy/Mental Status: alert, agitated, other (intermittently confusion continues) - Problem List & Annotations (1) Generalized weakness SNOMED Code(s): 26079052 Code(s): R53.1 - WEAKNESS Status: Chronic Priority: High Current Visit : Yes (2) Failure to thrive SNOMED Code(s): 91545545 Code(s): AHV9445 - Status: Chronic Priority: High Current Visit: Yes (3) Dehydration SNOMED Code(s): 53028548 Code(s): E86.0 - DEHYDRATION Status: Acute Priority: Medium Current Visit: Yes (4) Malignant pleural effusion SNOMED Code(s): 07834577 Code(s): J91.0 - MALIGNANT PLEURAL EFFUSION Status: Acute Priority: High Current Visit: Yes (5) Adenocarcinoma of lung, stage 4 SNOMED Code(s): 354877803, 133184919 Code(s): C34.90 - MALIGNANT NEOPLASM OF UNSP PART OF UNSP BRONCHUS OR LUNG Status: Chronic Priority: High Current Visit: Yes Qualifiers: Laterality: right Qualified Code(s): C34.91 - Malignant neoplasm of unspecified part of right bronchus or lung (6) Hypoxia SNOMED Code(s): 687610063, 181919275 Code(s): R09.02 - HYPOXEMIA Status: Chronic Current Visit: No - Problem List Review Problem List Initiated/Reviewed/Updated: Yes - My Orders Last 24 Hours: My Active Orders 04/22/16 09:00 Piperacillin/Tazobactam [Piperacil-Tazobact] 4.5 gm Sodium Chloride 0.9% [ Normal Saline] 100 ml IV Q6H Vancomycin Pharmacy to Dose [Pharmacy to Dose - Vancomycin] 1 dose .XX ASDIRECTED 04/22/16 11:00 Vancomycin [Vancocin] 1 gm Sodium Chloride 0.9% [Normal Saline] 250 ml IV Q8H 04/22/16 14:00 Levofloxacin/Dextrose 5%-Water [Levaquin in D5W 750 MG/150 ML] 750 mg Premix Bag 1 bag IV Q24H 04/23/16 10:00 VANCOMYCIN TROUGH [CHEM] Routine - Plan Plan:: 70 year old male admitted with generalized weakness, dehydration, and anemia with pmh of 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 1. Generalized weakness: Continues. PT unable to assess or work with patient in meaningful way due to the lack of following commands. Discharge from PT for now, if medical condition improves we may re-consult 2. Anemia: Stable Hgb 11.1 today. 3. Dehydration: Still on IVFs at 100. Encourage PO intake if not too confused. 4. Failure to thrive: Video fluoro showed aspiration with thin liquids yesterday. Dietary unable to get good bedside and think he may have silent aspiration and cannot recommend any unsafe diet. Patient was started on Remeron yesterday for appetite stimulant but still not eating well. Will continue to monitor. 5. Pleural effusion: Secondary to adenocarcinoma. Will continue to monitor but with adenocarcinoma he may will most likely need additional thoracentesis in the near future. Still requiring 4 L which is his previous home baseline before admission. 6. Stage IV lung ca with brain mets: Received chemo April 08, next scheduled is April 29. Dr. Marlow, his oncologist, is scheduled to see him tomorrow April 22 but has stated that his prognosis is not good. She will see him here if he is still in the hospital. Family still wants everything done. Dr Marlow did visit with family this morning regarding treatment. She wanted head CT to evaluate mets to brain and monitor for edema. Mention potential transfer to [place] but would like to see head CT first. Currently awaiting Dr. Marlow's recommendations. 7. Hypocalcemia: Continuing to supplement and monitor on Calcium + Vit D. 8. HCAP vs aspiration pneumonia: L lung miles worse today, CXR shows new infiltrate. Will start broad spectrum antibiotics due to recent admission and pneumonia. Consider aspiration pneumonia as well due to video swallow study results. 9. Confusion and agitation: Head CT reveals no acute infarct or edema surrounding metastasis. Haldol PRN. VTE: SCDs. Lovenox restarted. Dispo: 1-2 days pending improvement. Pending Dr. Singer recommendations.
[2016-04-22] MEDS ORDERED: Calcium Gluconate 10% 1 GM/10 ML SDV IV ONE (14:45)
[2016-04-22] MEDS ORDERED: WATER IV ONE ×4 (15:30→16:30)
[2016-04-22] MEDS ORDERED: CALCIUM GLUCONATE IV ONE ×4 (15:30→16:30)
[2016-04-22] MEDS ORDERED: DEXTROSE 5% IV ONE ×4 (15:30→16:30)
[2016-04-22 17:00] VITALS: BP 92/58
[2016-04-22] MEDS: Enoxaparin 40 MG/0.4 ML Syringe SUBCUT SCH (17:17)
--- NOTE | 2016-04-22 17:28 | PCM.DCSUM1 ---
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 Zabala 's clinic 04/19/2016 with concerns of generalized weakness and continued poor appetite. His reports he has continued to not eat or drink much at home. Anything in solid nature he will not eat, he will put it in his mouth and he immediately spits it out. They don't recall him having any troubles swallowing liquids. He eats applesauce, ice cream and Ensure at home. They have attempted to puree other foods, such as meatloaf but he would not eat this. He received chemotherapy on April 08 here in [place] and is scheduled for another treatment on April 29. He is being treated by Dr. Mildred Marlow, current treatment includes CARBOplatin and PEMEtrexed. He has no complaints of a sore throat or mouth sores. He denies any chest pain or palpitations. Does have SOB with exertion. He was seen in the ED on Tuesday04/16/2016 in [place], [place] for a thoracentesis in which they drained 3 L, per his 's report. He uses 4 L [place] oxygen at home since diagnosis of lung cancer. denies him having any fevers , cough or chills at home. No abdominal pain or black/bloody stools. Does have some loose stool. He was sent home on Augmentin and Flagyl on discharge April 09 for PNA. He does complain of bilateral foot pain. In the clinic 04/19/2016 hgb 8.9 down from 10.9 on 04/07/2016. WBC 5,170, Platelets 159, Na 139, K+4.1, BUN 13, Cr 0.7, Mg 1.8 Ca 7.4, AST 85 ALT 65, Alk phos 107. CXR today reveals moderate R pleural effusion decreased from exam on Apr 05, 2016, persistent R perihilar density and right upper and R lower lobe infiltrate and atelectasis. Direct admission recommended by Dr. Zabala for generalized weakness, dehydration, and anemia. - Discharge Data Discharge Date: 04/22/16 Discharge Disposition: DC/Tfer to Acute Hospital 02 Condition: Good - Discharge Diagnosis/Problem(s) (1) Generalized weakness SNOMED Code(s): 41248146 ICD Code: R53.1 - WEAKNESS Status: Chronic Priority: High Current Visit : Yes (2) Failure to thrive SNOMED Code(s): 39948268 ICD Code: [id number] - Status: Chronic Priority: High Current Visit: Yes (3) Dehydration SNOMED Code(s): 21356014 ICD Code: E86.0 - DEHYDRATION Status: Acute Priority: Medium Current Visit: Yes (4) Malignant pleural effusion SNOMED Code(s): 03458602 ICD Code: J91.0 - MALIGNANT PLEURAL EFFUSION Status: Acute Priority: High Current Visit: Yes (5) Adenocarcinoma of lung, stage 4 SNOMED Code(s): 988903805, 650281174 ICD Code: C34.90 - MALIGNANT NEOPLASM OF UNSP PART OF UNSP BRONCHUS OR LUNG Status: Chronic Priority: High Current Visit: Yes Qualifiers: Laterality: right Qualified Code(s): C34.91 - Malignant neoplasm of unspecified part of right bronchus or lung (6) Hypoxia SNOMED Code(s): 840735056, 761645927 ICD Code: R09.02 - HYPOXEMIA Status: Chronic Current Visit: No - Patient Summary/Data Operative Procedure(s) Performed: colonoscope Consults: Consultations 04/19/16 14:52 [facility] Evaluation and Treatment [CONS] Routine 04/19/16 18:25 Consult to [employer] [CONS] Routine 04/20/16 08:00 PT Evaluation and Treatment [CONS] Routine - Discharge Plan Home Medications: Home Meds Pramipexole Di-HCl [Pramipexole Dihydrochloride] 0.5 mg PO BEDTIME 02/24/16 [ History] Albuterol Sulfate [Proair Hfa] 2 puff INH QID PRN 03/29/16 [History] Aspirin [Lo-Dose Aspirin EC] 81 mg PO DAILY 03/29/16 [History] Umeclidinium Brm/Vilanterol Tr [Anoro Ellipta 62.5-25 Mcg INH] 1 puff INH DAILY 03/29/16 [History] Zolpidem [Ambien] 10 mg PO BEDTIME PRN 03/29/16 [History] metroNIDAZOLE 500 mg PO Q6H #20 tablet 04/04/16 [Rx] Ondansetron HCl [Ondansetron] 8 mg PO Q8H PRN 04/19/16 [History] Prochlorperazine Maleate 10 mg PO ASDIRECTED PRN 04/19/16 [History] oxyCODONE 5 mg PO QID PRN 04/19/16 [History] Referrals: Mildred Marlow MD [Physician] - 04/22/16 12:00 pm - Discharge Summary/Plan Comment DC Time >30 min.: No Discharge Summary/Plan Comment: Discharge diagnoses Stage IV adenocarcinoma of lung with mets to brain and bone Aspiration pneumonia vs HCAP Failure to thrive VELASQUEZ Castillo was admitted and treated with IV fluids for dehydration and given 3 units PRBCs for anemia. Hgb is stable today, 11.1. Thoracentesis to R was completed 04/20 which drained 2 L dark red fluid. He continues to not eat or drink much and had a video swallow study which noted an event of aspiration on thin liquids. CXR 04/21 was completed which revealed small to moderate loculated pleural effusion with increasing adjacent consolidation and new mild left basilar consolidation. Broad spectrum antibiotics started today due to aspiration pneumonia vs HCAP. Dr. Marlow visited with patient and family this morning and offered transfer to [facility] for continued care, potentially feeding tube and placement of pleurX to drain R lung more continuously. Head CT was completed today to re-evaluate brain mets, no acute intracranial findings or hemorrhage was noted, R subcortical parietl hypodensity correlating to an area of metastatic disease on prior MRI, no midline shift or edema noted. Family continues to work full treatment and FULL CODE. We have reached limits of providing carem we are unable to place [facility] in our facility and they would like transfer to [facility] for further care and treatment of aspiration pneumonia and Stage IV adenocarcinoma. I spoke with Dr. Pena, Hospitalist, at [facility] who has kindly accepted patient for transfer tonight. Dr. Marlow will continue to follow patient once at [facility]. Patient and family updated and agree with plan for transfer. Will transfer patient via air tonight. - General Info Date of Service: 04/22/16 Admission Dx/Problem (Free Text: Admission Diagnosis/Problem Admission Diagnosis/Problem Dehydration - Review of Systems General: Denies: Fever Pulmonary: Reports: shortness of breath, cough, sputum Cardiovascular: Reports: No Symptoms. Denies: Chest Pain, Edema Gastrointestinal: Reports: No symptoms. Denies: Abdominal pain, Nausea, Vomiting Genitourinary: Reports: no symptoms. Denies: dysuria, frequency, burning Musculoskeletal: Reports: no symptoms Neurological: Reports: Confusion - Patient Data Vitals - Most Recent: Last Vital Signs Temp 99.1 F 04/22/16 16:00 Pulse 97 04/22/16 16:00 Resp 20 04/22/16 16:00 BP 92/58 L 04/22/16 16:00 Pulse Ox 90 L 04/22/16 16:00 Weight - Most Recent: 76.5 kg I&O - Last 24 hours: Intake & Output 04/22/16 04/22/16 04/22/16 06:59 14:59 22:59 Intake Total 250 350 Output Total 1525 Balance -1275 350 Lab Results - Last 24 hrs: Laboratory Results - last 24 hr 04/22/16 04/22/16 Range/Units 05:38 06:51 WBC 6.84 (4.0-11.0) K/uL RBC 3.86 L (4.50-5.90) M/uL Hgb 11.1 L (13.0-17.0) g/dL Hct 33.6 L (38.0-50.0) % MCV 87.0 (80.0-98.0) fL MCH 28.8 (27.0-32.0) pg MCHC 33.0 (31.0-37.0) g/dL RDW Std Deviation 47.2 (28.0-62.0) fl RDW Coeff of Vivienne 17 H (11.0-15.0) % Plt Count 231 (150-400) K/uL MPV 9.60 (7.40-12.00) fL Neut % (Auto) 72.5 (48.0-80.0) % Lymph % (Auto) 15.5 L (16.0-40.0) % Wake % (Auto) 9.9 (0.0-15.0) % Eos % (Auto) 1.8 (0.0-7.0) % Baso % (Auto) 0.3 (0.0-1.5) % Neut # 5.0 (1.4-5.7) K/uL Lymph # 1.1 (0.6-2.4) K/uL Wake # 0.7 (0.0-0.8) K/uL Eos # 0.1 (0.0-0.7) K/uL Baso # 0.0 (0.0-0.1) K/uL Nucleated RBC % 0.0 /100WBC Nucleated RBCs # 0 K/uL Sodium 145 (136-146) mmol/L Potassium 4.1 (3.5-5.1) mmol/L Chloride 113 H (98-110) mmol/L Carbon Dioxide 23 (21-31) mmol/L BUN 6 (6.0-23.0) mg/dL Creatinine 0.5 L (0.6-1.5) mg/dL Est Cr Clr Drug Dosing 154.49 mL/min Estimated GFR (MDRD) > 60.0 ml/min Glucose 94 (60-110) mg/dL Calcium 6.5 L (8.8-10.8) mg/dL Phosphorus 2.4 (2.4-4.7) mg/dL Magnesium 1.8 (1.5-2.3) mEq/L Total Bilirubin 0.9 (0.1-1.5) mg/dL AST 77 H (5-40) IU/L ALT 48 (8-54) IU/L Alkaline Phosphatase 102 (40-150) Total Protein 5.1 L (6.0-8.0) g/dL Albumin 2.3 L (3.4-4.8) g/dL Globulin 2.8 (2.0-3.5) g/dL Albumin/Globulin Ratio 0.8 L (1.3-2.8) Med Orders - Current: Current Medications Albuterol (Ventolin Hfa) 8 gm INH QID PRN PRN Reason: Shortness of Breath Last Admin: 04/22/16 09:21 Dose: 2 puff Calcium Carbonate (Caltrate 600+D 1500 Mg-400 Units) 1 tab PO DAILY [facility] Last Admin: 04/22/16 08:33 Dose: 1 tab Enoxaparin Sodium (Lovenox) 40 mg SUBCUT Q24H [facility] Last Admin: 04/21/16 17:36 Dose: 40 mg Haloperidol Lactate (Haldol) 2 mg IM Q6H PRN PRN Reason: Agitation Last Admin: 04/22/16 10:47 Dose: 2 mg Sodium Chloride (Normal Saline) 1,000 mls @ 100 mls/hr IV ASDIRECTED [facility] Last Admin: 04/22/16 02:39 Dose: 100 mls/hr Piperacillin Sod/Tazobactam (Sod 4.5 gm/ Sodium Chloride) 100 mls @ 100 mls/hr IV Q6H [facility] Last Admin: 04/22/16 16:22 Dose: 100 mls/hr Vancomycin HCl 1 gm/ Sodium (Chloride) 250 mls @ 166.667 mls/hr IV Q8H [facility] Last Admin: 04/22/16 12:40 Dose: 166.667 mls/hr Levofloxacin/Dextrose 750 mg/ (Premix) 150 mls @ 100 mls/hr IV Q24H [facility] Last Admin: 04/22/16 14:22 Dose: 100 mls/hr Mirtazapine (Remeron) 15 mg PO BEDTIME [facility] Last Admin: 04/21/16 21:47 Dose: 15 mg Morphine Sulfate (Morphine) 2 mg IVPUSH Q2H PRN PRN Reason: Pain (severe 7-10) Last Admin: 04/22/16 02:25 Dose: 2 mg Ondansetron HCl (Zofran) 4 mg IVPUSH Q4H PRN PRN Reason: Pain Last Admin: 04/21/16 01:09 Dose: 4 mg Oxycodone HCl (Oxycodone) 5 mg PO QID PRN PRN Reason: Pain Last Admin: 04/22/16 00:37 Dose: 5 mg Pramipexole Dihydrochloride (Mirapex) 0.5 mg PO BEDTIME [facility] Last Admin: 04/21/16 21:43 Dose: 0.5 mg Prochlorperazine Maleate (Compazine) 10 mg PO ASDIRECTED PRN PRN Reason: asdirected Sodium Phosphate (Neutra-Phos) 250 mg PO QID [facility] Last Admin: 04/22/16 12:44 Dose: 250 mg Vancomycin HCl (Pharmacy To Dose - Vancomycin) 1 dose .XX ASDIRECTED [facility] Wound Care/Dressing Products (Duoderm Cgf) 1 each TOP ASDIRECTED PRN PRN Reason: open area Last Admin: 04/22/16 14:11 Dose: 1 each Zaleplon (Sonata) 5 mg PO BEDTIME PRN PRN Reason: Insomnia Last Admin: 04/21/16 21:44 Dose: 5 mg Discontinued Medications Alteplase, Recombinant (Cathflo Activase) 4 mg IVPUSH ONETIME ONE Stop: 04/22/16 09:02 Last Admin: 04/22/16 09:48 Dose: 4 mg Calcium Carbonate/Glycine (Tums) 1,000 mg PO ONETIME ONE Stop: 04/19/16 16:46 Last Admin: 04/19/16 17:10 Dose: 1,000 mg Calcium Gluconate (Calcium Gluconate) 1 gm IV ONETIME ONE Stop: 04/20/16 07:44 Last Admin: 04/20/16 07:55 Dose: 1 gm Levofloxacin/Dextrose 750 mg/ (Premix) 150 mls @ 100 mls/hr IV Q24H [facility] Levofloxacin/Dextrose 750 mg/ (Premix) 150 mls @ 100 mls/hr IV Q24H [facility] Last Admin: 04/22/16 12:53 Dose: Not Given Calcium Gluconate 2 gm/ (Dextrose/Water) 70 mls @ 140 mls/hr IV ONETIME ONE Stop: 04/22/16 15:59 Last Admin: 04/22/16 16:23 Dose: 140 mls/hr Calcium Gluconate 2 gm/ (Dextrose/Water) 70 mls @ 140 mls/hr IV ONETIME ONE Stop: 04/22/16 16:59 Last Admin: 04/22/16 16:26 Dose: Not Given Sodium Phosphate (Neutra-Phos) 250 mg PO QID [facility] Stop: 04/21/16 00:01 Last Admin: 04/20/16 23:25 Dose: 250 mg Sodium Phosphate (Neutra-Phos) 250 mg PO ONETIME STA Stop: 04/21/16 06:37 Last Admin: 04/21/16 06:44 Dose: 250 mg - Exam Quality Assessment: Reports: supplemental oxygen, urine catheter, DVT prophylaxis General: Reports: alert. Denies: oriented HEENT: Reports: Pupils equal, Pupils reactive, EOMI, Mucous membr. moist/pink Lungs: Reports: Crackles (coarse crackles to L, Rhonchi to R with diminished to bases). Denies: Normal respiratory effort (dyspnea noted intermittently) Cardiovascular: Reports: Regular Rate, Regular Rhythm, No Murmurs Abdomen: Reports: bowel sounds present, soft, no tenderness, no distension Extremities: Reports: no edema, normal pulses Skin: Reports: warm, dry Wound/Incisions: Reports: decubitis (stage 2 sacral pressure ulcer to gluteal cleft, duoderm intact, no erythema) Psy/Mental Status: Reports: alert, agitated, other (confusion) *Q Meaningful Use (DIS) - VTE *Q VTE Criteria *Q: - Stroke *Q Stroke Criteria *Q: - AMI *Q AMI Criteria *Q:
== END 2016-04-22 19:00 | DRG 137 ==
LOC: MW.ICU 13:57 → MW.MS 04-21 21:14
PROVIDERS: ADMIT Internal Medicine; ATTEND Internal Medicine
PROC: 30233N1 Transfusion of Nonautologous Red Blood Cells into Peripheral Vein, Percutaneous Approach (ICD-10-PCS; principal; 2016-04-19)
PROC: 0W993ZZ Drainage of Right Pleural Cavity, Percutaneous Approach (ICD-10-PCS; 2016-04-20)
DX: J69.0 Pneumonitis due to inhalation of food and vomit (principal); R62.7 Adult failure to thrive; E86.0 Dehydration; J91.0 Malignant pleural effusion; R09.02 Hypoxemia; C34.91 Malignant neoplasm of unspecified part of right bronchus or lung; C79.31 Secondary malignant neoplasm of brain; C79.51 Secondary malignant neoplasm of bone; Z79.899 Other long term (current) drug therapy; R41.82 Altered mental status, unspecified; D64.9 Anemia, unspecified; Z87.891 Personal history of nicotine dependence; E83.51 Hypocalcemia; R53.1 Weakness; R63.4 Abnormal weight loss; R93.8 Abnormal findings on diagnostic imaging of other specified body structures; J44.9 Chronic obstructive pulmonary disease, unspecified; C34.90 Malignant neoplasm of unspecified part of unspecified bronchus or lung; J90 Pleural effusion, not elsewhere classified; R91.8 Other nonspecific abnormal finding of lung field
CPT/HCPCS: 32555; 36415; 36430; 51703; 70450; 70450-26; 71020; 71020-26; 74230; 74230-26; 80053; 82272; 83540; 83735; 84100; 85014; 85018; 85025; 92610-GN; 94640; 94664; 97110-GP; 97161-GP; 97802; A9270-GY; J0610; J1630; J1650; J1956; J2270; J2405; J2543; J2997; J3370; J7030; J7040; J7050; J7060; P9016